=== PATIENT | female | born 1940 | race Caucasian/White ===

== ENCOUNTER 2016-09-05 08:57 | Emergency (ER) | payer MEDICARE, OTHER ==
[~2016-09-05] VITALS: Ht 157.5 cm; Wt 59.1 kg
[2016-09-05] VITALS (8 sets, daily range): BP systolic 89–134; BP diastolic 39–107; PULSE 63–83; RESP 14–20; O2SAT 95–98
[~2016-09-05 08:57] MED LIST: ASPI-973 PO; ATEN25TA PO; CALC-953 PO; CETI10CA PO; CITRUCEL PO; CYAN1TAB42 PO; DIAZ5TAB3 PO; FLUO20CA25 PO; FLUT16SP NS; LOSA100T29 PO; MECL-114 PO; MULT-1018 PO; OMEP20CA11 PO; TRAM50TA2 PO
--- NOTE | 2016-09-05 09:25 | ED.REPORT ---
HPI-General Illness Date of Service Sep 05, 2016 ED Provider: Zoë Rashid MD 76 y/o female on Aspirin and with a hx of HTN, hyperlipidemia, benign paroxysmal positional vertigo and anxiety presents to the ED via EMS complaining of lightheadedness, onset just prior to arrival. The pt was washing her face earlier today when she felt like she was going to fall if she did not sit down. She states "I might have passed out after I sat down". Associated sx include worsening chronic cough, fatigue, diaphoresis, nausea and difficulty maintaining balance. She denies any focal pain, fever, chills, hematochezia, melena, shortness of breath, depression, stress and change in appetite. The pt has never experienced similar sx before. Nursing Notes Stated Complaint: NEAR SYNCOPE Chief Complaint: General Complaint Nursing Notes Reviewed: Yes Allergies: Coded Allergies: Penicillins (Verified Allergy, Severe, itchy rash, 11/23/14) Sulfa (Sulfonamide Antibiotics) (Verified Allergy, Unknown, RASH, 11/23/14) hydrocodone (Verified Adverse Reaction, Severe, N/V, 11/23/14) Cat Dander (Verified Adverse Reaction, Intermediate, nasal plug up, ) oxycodone (Verified Adverse Reaction, Intermediate, n/v, 11/23/14) Scheduled ([Citrucel]) 1 TBS PO DAILY Aspirin (Aspirin) 81 Mg Tablet 81 MG PO DAILY Atenolol (Atenolol) 25 Mg Tablet 25 MG PO DAILY Calcium Citrate/Vitamin D3 (Calcium Citrate-Vit D3 Tablet) 1 Each Tablet 1 EACH PO DAILY Cetirizine HCl (Zyrtec) 10 Mg Capsule 10 MG PO DAILY Cyanocobalamin/Folic Acid (Vitamin E57-Ydiqy Acid Tablet) 1 Each Tablet 1 EACH PO DAILY Fluoxetine (Fluoxetine) 20 Mg Capsule 20 MG PO DAILY Fluticasone Propionate (Fluticasone Propionate Nasal) 16 Gm [place].susp 1 SPRAY NS BID Losartan Potassium (Losartan Potassium) 100 Mg Tablet 100 MG PO DAILY Meclizine (Bonine) 25 Mg Tab.chew 25 MG PO Q8 Meclizine (Bonine) 25 Mg Tab.chew 25 MG PO TID Multivitamin (Multi Vitamin Daily) 1 Each Tablet 1 EACH PO DAILY Omeprazole (Omeprazole) 20 Mg Capsule.dr 20 MG PO DAILY Scheduled PRN Diazepam (Diazepam) 5 Mg Tablet 5 MG PO TID PRN PRN For Spasm Tramadol (Tramadol) 50 Mg Tablet 100 MG PO Q6H PRN PRN For Pain Tramadol (Tramadol) 50 Mg Tablet 50 MG PO Q4H PRN PRN For Pain General Time Seen by MD: 08:59 Chief Complaint Other (lightheadedness) Hx Obtained From: Patient Arrived By: Ambulance Sudden in Onset?: Yes Onset Occurred: Just prior to arrival Symptom Duration: Since onset Severity: Current: No pain currently Severity: Maximum: No pain Recent Healthcare: No recent doctor visit Similar Sx Previous: No Past Medical History Past Medical History Shoulder pain Anxiety Torn - March, Benign paroxysmal positional vertigo Reports: GERD, Hyperlipidemia, Hypertension Past Surgical History Colonoscopy revealed few diverticula Smoking History Never Smoker Social History Patient goes to the gym twice on a weekly basis Other Social History: Good social support, , Local resident Ambulatory Status Independent Review of Systems Reports: difficulty keeping balance Denies: focal pain Denies: change in appetite Full Review of Systems Constitutional: Reports: Fatigue, Denies: Chills, Fever Respiratory: Reports: Non-productive cough (worsening), Denies: Shortness of breath GI: Reports: Nausea, Denies: Hematochezia, Melena Skin: Reports Diaphoresis Neurologic: Reports: Lightheaded Psychiatric: Denies: Depression, Stress Complete sys rev & neg: except as marked. Physical Exam Vital Signs Vital Signs Date Time Temp Pulse Resp B/P Pulse Ox O2 Delivery O2 Flow Rate FiO2 09/05/16 12:38 67 16 100/44 97 Room Air 09/05/16 12:22 67 16 100/44 97 Room Air 09/05/16 12:19 64 18 110/43 96 Room Air 09/05/16 11:38 63 20 134/107 95 Room Air 09/05/16 10:48 83 17 96/49 96 09/05/16 10:48 74 16 89/48 98 09/05/16 10:47 73 14 105/39 96 Room Air 09/05/16 10:40 77 16 113/44 09/05/16 09:19 36.9 76 14 123/49 96 Room Air Initial VS: Reviewed Head / Eyes: Atraumatic, Normocephalic, PERRL Abdomen / GI: Soft, Non-tender Extremities: Vascular intact, Neuro intact, No swelling, No tenderness Skin: Warm, Dry, No cyanosis General/Constitutional: Awake, Alert, No acute distress, Well appearing, Cooperative Neck: Atraumatic, Supple, Full range of motion, No carotid bruit Respiratory / Chest: Atraumatic, Breath sounds NL, Breath sounds = bilat, No respiratory distress, No rales, No rhonchi, No wheezing Cardiovascular: Heart rate NL, Regular rhythm, Heart sounds NL, No gallop, No murmurs, No rubs Neurologic: Oriented X3, Speech NL, No motor deficits, No sensory deficits, CN II - XII intact, Cerebellar NL (mild unsteadiness on tandem gait), Gait NL Face symmetric Strength intact No dysmetria Interpretation & Diagnostics Lab Results Interpretation Result Diagram: 09/05/16 0910 09/05/16 0910 Test 09/05/16 09:10 White Blood Count 10.3th/mm3 (3.8-10.1) Red Blood Count 4.13mil/mm3 (3.90-5.20) Hemoglobin 12.4g/dL (12.0-15.6) Hematocrit 36.0% (35.0-46.0) Mean Corpuscular Volume 87.2fL (81-100) Mean Corpuscular Hemoglobin 30.0pg (27.0-35.0) Mean Corpuscular Hemoglobin Concent 34.4% (32.0-37.0) Red Cell Distribution Width 12.6% (12.3-15.4) Platelet Count 258bil/L (150-400) Neutrophils (%) (Auto) 64.9% (40-74) Lymphocytes (%) (Auto) 18.0% (14-46) Monocytes (%) (Auto) 12.8% (4-12) Eosinophils (%) (Auto) 3.1% (0-5) Basophils (%) (Auto) 0.9% (0-3) Sodium Level 132mEq/L (134-144) Potassium Level 4.0mEq/L (3.5-5.2) Chloride Level 93mEq/L (97-108) Carbon Dioxide Level 22mmol/L (18-29) Blood Urea Nitrogen 17mg/dL (8-27) Creatinine 0.97mg/dL (0.57-1.00) Estimat Glomerular Filtration Rate 80mL/min (>59) Glucose Level 115mg/dL (60-99) Calcium Level 9.5mg/dL (8.5-10.1) Magnesium Level 1.6mg/dL (1.6-2.6) Total Bilirubin 0.9mg/dL (0.0-1.2) Aspartate Amino Transf (AST/SGOT) 46U/L (0-50) Alanine Aminotransferase (ALT/SGPT) 40U/L (0-32) Alkaline Phosphatase 149U/L (25-165) Troponin T 0.010ug/L (0.0-0.011) Total Protein 8.1g/dL (6.4-8.4) Albumin 3.7g/dL (3.4-5.0) ECG Interpretation ECG Interpretation: Normal sinus rhythm. Rate 71. Prolonged VA interval Low voltage, precordial leads Time: 09:12 Interpreted by: ED physician X-Ray Chest Interpretation Chest Xray Interpretation: IMPRESSION: Stable chest. No acute cardiopulmonary process is evident. Dictated by: Jaosn Charles M.D. on 09/05/2016 at 8:41 Approved by: Jason Charles M.D. on 09/05/2016 at 8:45 View: Portable, 1 view Interpretation / Wet Read by: Interpret - Radiologist Re-Eval/Medical Decision Med Decision/Clinical Course 76-year-old female with history of presyncope preceding to be this morning with no fall or head strike. She did have some orthostasis on physical exam with low blood pressure with standing. She had a prodrome as well, and I have a low suspicion for cardiac arrhythmia as the source of her symptoms. Discussed her case with primary care doctor, who recommends stopping her atenolol which given her blood pressure in the emergency department he thinks a good idea. She had normal neurologic exam exception of some unsteadiness with tandem gait only and no other cerebellar signs. I do not suspect a neurologic cause of her symptoms. She has an appointment with her primary care doctor within 1 week, with reviewed plan and return precautions with her and her and they expressed understanding. Source of Hx: Old records Time of Eval: 10:45 Re-Evaluation/Progress Note: The pt ambulated with steady gait. She is somewhat unsteady with tandem gait. Her orthostatic vital signs are positive but she does not report dizziness any more. Informed the pt Dr. Quesada will be consulted for the plan ahead. She understands and agrees with the plan. All questions answered. Time of Eval: 11:13 Re-Evaluation/Progress Note: Rechecked pt. Discussed lab results, imaging results, diagnosis and plan to discharge. Pt understands and agrees with the plan. F/U instructions and RTER warning given. All questions addressed. Consultation : Referral / Consult Name: Rudy Quesada MD Consulted With: Primary care physician Call Returned at: 10:57 Auto Headlight Mechanic: Will see in office, Agrees with eval, Agrees with plan Note: Dr. Quesada will see the pt next week. He recommends stopping atenolol and taking amlodipine if she has a headache. Counseled Regarding: Diagnosis, Lab results, Need for follow-up, When/why to return to ED Discharge & Departure Primary Impression: Lightheadedness Disposition: Home Discharge Condition All VS Reviewed: Yes Additional Instructions: Thank you for entrusting us with your care today. Your lab and imaging results were reassuring. Her vital signs did show that he may be dehydrated. Stop taking your atenolol. If after a few days without taking atenolol you are having any episodes of lightheadedness or dizziness, you should decrease your amlodipine dose by half. If you have questions about this you can call Dr. Quesada's office. Please keep your appointment with Dr. Quesada on 09/12/16 at 09:20 for further evaluation. Return to the emergency department in case of chest pain, shortness of breath, worsening dizziness or any new or concerning symptoms. Referrals: Rudy Quesada MD (PCP) Scribe Attestation Portions of this note were transcribed by Roxann Christopher. I,, personally performed the history, physical exam and medical decision-making;I reviewed and confirmed the accuracy of the information in the transcribed note. Signed by Alicia Lozano. 09/05/16 11:23 copies to: Rudy Quesada MD, Sarah C MD Sep 05, 2016 09:24 Roxann Christopher Sep 05, 2016 09:36
[2016-09-05 09:41] LABS: Mean Corpuscular Volume 87.2 fL (81-100)
[2016-09-05 09:42] LABS: BASOPHILS % (AUTO) 0.9 % (0-3); EOSINOPHILS % (AUTO) 3.1 % (0-5); MONOCYTES % (AUTO) 12.8 % (4-12); NEUTROPHILS % (AUTO) 64.9 % (40-74); Platelet Count 258 bil/L (150-400)
--- NOTE | 2016-09-05 09:47 | DRSVH ---
PROCEDURE: X-RAY CHEST ONE VIEW, PORTABLE ([id number]) INDICATIONS: near syncope TECHNIQUE: One view of the chest was acquired. COMPARISON: [facility], CR, XR CHEST 2VW, 06/28/2015, 9:20. FINDINGS: Surgical changes and devices: None. Lungs and pleura: No pleural effusions or pneumothorax. Lungs are clear. Mediastinum: Mediastinal contours appear normal. Heart size is normal. There is aortic atheroscler osis. Bones and chest wall: No suspicious bony lesions. Overlying soft tissues appear unremarkable. IMPRESSION: Stable chest. No acute cardiopulmonary process is evident. Dictated by: Jason Charles M.D. on 09/05/2016 at 8:41 Approved by: Jason Charles M.D. on 09/05/2016 at 8:45
[2016-09-05 09:48] LABS: TROPONIN T 0.01 ug/L (0.0-0.011)
[2016-09-05 10:00] LABS: Magnesium 1.6 mg/dL (1.6-2.6)
[2016-09-05] MEDS ORDERED: 0.9% Sodium Chloride 1,000 ML IV ONE (10:55)
== END 2016-09-05 12:41 | disposition home or self-care (01) ==
LOC: SED 08:57
DX: R42 Dizziness and giddiness (principal); R05 Cough; R53.83 Other fatigue; R61 Generalized hyperhidrosis; R11.0 Nausea; R26.89 Other abnormalities of gait and mobility; F41.9 Anxiety disorder, unspecified; I10 Essential (primary) hypertension; K21.9 Gastro-esophageal reflux disease without esophagitis; E78.5 Hyperlipidemia, unspecified; Z79.82 Long term (current) use of aspirin; Z88.0 Allergy status to penicillin; Z88.2 Allergy status to sulfonamides; Z88.5 Allergy status to narcotic agent; Z91.09 Other allergy status, other than to drugs and biological substances
CPT/HCPCS: 36415; 71010; 80053; 83735; 84484; 85025; 93005; 96360; 99285; J7030

== ENCOUNTER 2016-09-13 13:27 | Inpatient (IN) | payer MEDICARE ==
[~2016-09-13] VITALS: Ht 157.5 cm; Wt 59.9 kg
[2016-09-13 13:32] VITALS: BP 116/78; PULSE 89; RESP 16; O2SAT 98
--- NOTE | 2016-09-13 13:40 | ED.REPORT ---
HPI-General Illness Date of Service Sep 13, 2016 ED Provider: Rizwana Maurilio Patient is a 76 year old female with a hx of hyperlipidemia who presents to the ED after being referred by Dr. Quesada for abnormal lab values. Associated symptoms include weakness, orange urine, and fatigue. She reports she has not been eating and drinking normally. She denies diarrhea, constipation, rash, fevers, chills, numbness, focal weakness, abdominal pain, dysuria, or any other symptoms. Lab values 09/12/16 are as follows: Bilirubin 1.5, Cl 90, K 3.6, Na 128, Hematocrit 30.3, Hemoglobin 10.4, WBC 13.9. She was seen in the ED a week ago s/p a syncopal episode. Patient was taken off of her blood pressure medication yesterday. Nursing Notes Stated Complaint: BLOOD ISSUE/ SENT BY Chief Complaint: General Complaint Nursing Notes Reviewed: Yes Allergies: Coded Allergies: Penicillins (Verified Allergy, Severe, itchy rash, 09/13/16) Sulfa (Sulfonamide Antibiotics) (Verified Allergy, Unknown, RASH, 09/13/16) hydrocodone (Verified Adverse Reaction, Severe, N/V, 09/13/16) Cat Dander (Verified Adverse Reaction, Intermediate, nasal plug up, ) oxycodone (Verified Adverse Reaction, Intermediate, n/v, 09/13/16) Scheduled ([Citrucel]) 1 TBS PO DAILY Aspirin (Aspirin) 81 Mg Tablet 81 MG PO DAILY Atenolol (Atenolol) 25 Mg Tablet 25 MG PO DAILY Calcium Citrate/Vitamin D3 (Calcium Citrate-Vit D3 Tablet) 1 Each Tablet 1 EACH PO DAILY Cetirizine HCl (Zyrtec) 10 Mg Capsule 10 MG PO DAILY Cyanocobalamin/Folic Acid (Vitamin U62-[place] Acid Tablet) 1 Each Tablet 1 EACH PO DAILY Fluoxetine (Fluoxetine) 20 Mg Capsule 20 MG PO DAILY Fluticasone Propionate (Fluticasone Propionate Nasal) 16 Gm [place].susp 1 SPRAY NS BID Losartan Potassium (Losartan Potassium) 100 Mg Tablet 100 MG PO DAILY Meclizine (Bonine) 25 Mg Tab.chew 25 MG PO Q8 Meclizine (Bonine) 25 Mg Tab.chew 25 MG PO TID Multivitamin (Multi Vitamin Daily) 1 Each Tablet 1 EACH PO DAILY Omeprazole (Omeprazole) 20 Mg Capsule.dr 20 MG PO DAILY Scheduled PRN Diazepam (Diazepam) 5 Mg Tablet 5 MG PO TID PRN PRN For Spasm Tramadol (Tramadol) 50 Mg Tablet 100 MG PO Q6H PRN PRN For Pain Tramadol (Tramadol) 50 Mg Tablet 50 MG PO Q4H PRN PRN For Pain General Time Seen by MD: 13:39 Chief Complaint Weakness Hx Obtained From: Patient, Spouse Arrived By: Walk-in Recent Healthcare: Recent doctor visit Past Medical History Past Medical History Shoulder pain Anxiety Torn meniscus- March, Benign paroxysmal positional vertigo Reports: GERD, Hyperlipidemia Reports: Depression, Diverticulitis Past Surgical History Colonoscopy revealed few diverticula sigmoid colectomy oophorectomy hemorrhoidectomy Reports: Appendectomy Smoking History Never Smoker Social History Patient goes to the gym twice weekly Alcohol Use: Denies alcohol use Other Social History: Good social support, , Local resident Ambulatory Status Independent Review of Systems +abnormal lab values, orange urine, decreased appetite Full Review of Systems Constitutional: Reports: Fatigue, Weakness - generalized, Denies: Chills, Fever GI: Denies: Abdominal pain, Constipation, Diarrhea Female: Denies: Dysuria Skin: Denies Rash Neurologic: Denies: Focal weakness, Numbness Complete sys rev & neg: except as marked. Physical Exam Vital Signs Vital Signs Date Time Temp Pulse Resp B/P Pulse Ox O2 Delivery O2 Flow Rate FiO2 09/13/16 13:32 36.7 89 16 116/78 98 Room Air Initial VS: Reviewed, Vital signs normal Head / Eyes: Atraumatic, Normocephalic Neck: Full range of motion Respiratory: Breath sounds normal, Clear to auscultation, No respiratory distress Cardiovascular: Regular rate & rhythm, Heart sounds normal, Intact distal pulses Abdomen / GI: Soft, Non-tender Skin: Warm, Dry Neurologic: Alert, Oriented, Nonfocal Psychiatric: Mood/affect normal, Behavior normal, Normal thought content General/Constitutional: Awake, Alert Distress / Hydration: Positive: Dehydration mild Appearance / Presentation: Positive: Pale Thin Mouth: Positive: Mucous membranes dry Interpretation & Diagnostics Lab Results Interpretation Result Diagram: 09/13/16 1357 09/13/16 1357 Test 09/13/16 13:57 White Blood Count 14.7th/mm3 (3.8-10.1) Red Blood Count 3.74mil/mm3 (3.90-5.20) Hemoglobin 11.0g/dL (12.0-15.6) Hematocrit 31.6% (35.0-46.0) Mean Corpuscular Volume 84.5fL (81-100) Mean Corpuscular Hemoglobin 29.4pg (27.0-35.0) Mean Corpuscular Hemoglobin Concent 34.8% (32.0-37.0) Red Cell Distribution Width 12.8% (12.3-15.4) Platelet Count 310bil/L (150-400) Neutrophils (%) (Auto) 87.7% (40-74) Lymphocytes (%) (Auto) 6.3% (14-46) Monocytes (%) (Auto) 4.2% (4-12) Eosinophils (%) (Auto) 1.2% (0-5) Basophils (%) (Auto) 0.1% (0-3) Prothrombin Time 11.1sec (8.1-12.5) Prothromb Time International Ratio 1.04ratio Sodium Level 125mEq/L (134-144) Potassium Level 3.7mEq/L (3.5-5.2) Chloride Level 88mEq/L (97-108) Carbon Dioxide Level 22mmol/L (18-29) Blood Urea Nitrogen 14mg/dL (8-27) Creatinine 0.86mg/dL (0.57-1.00) Estimat Glomerular Filtration Rate 91mL/min (>59) Glucose Level 111mg/dL (60-99) Lactic Acid Level 1.5mmol/L (0.4-2.0) Calcium Level 9.2mg/dL (8.5-10.1) Magnesium Level 1.9mg/dL (1.6-2.6) Total Bilirubin 1.4mg/dL (0.0-1.2) Aspartate Amino Transf (AST/SGOT) 60U/L (0-50) Alanine Aminotransferase (ALT/SGPT) 57U/L (0-32) Alkaline Phosphatase 183U/L (25-165) Total Protein 8.3g/dL (6.4-8.4) Albumin 3.3g/dL (3.4-5.0) Lipase 584U/L (13-60) Re-Eval/Medical Decision Med Decision/Clinical Course Findings concerning for pancreatitis and probable gallstone pancreatitis. IV ertapenem is ordered. 1 L of normal saline is given and then subsequent to labs returning normal saline at 100 miles an hour is initiated. The patient is comfortable, she is not vomiting. Will await imaging and plan for admission versus transfer. Care transferred to Dr. Pérez Time of Eval: 14:15 Re-Evaluation/Progress Note: Discussed plan for admission pending CT results. Patient understands and agrees with plan. All questions addressed at this time. Consultation : Referral / Consult Name: Sorin Herrera MD Call Returned at: 15:10 Note: Gastroenterology, states he does not perform ERCP. If the patient will need urgent or emergent ERCP the patient should be transferred to a facility where this can be accommodated. Counseled Regarding: Diagnosis, Lab results, Need for admission Discharge & Departure Primary Impression: Acute pancreatitis Pancreatitis type: unspecified pancreatitis type Acute pancreatitis complication: unspecified Qualified Code: K85.90 - Acute pancreatitis without necrosis or infection, unspecified Disposition: ADMITTED TO HOSPITAL Discharge Condition All VS Reviewed: Yes Condition: Stable Referrals: Rudy Quesada MD (PCP) Care Transferred to: [facility] Transferred at: 15:15 Scribe Attestation Portions of this note were transcribed by Beth Hammond. I, Dr. Wagoner personally performed the history, physical exam and medical decision-making; I reviewed and confirmed the accuracy of the information in the transcribed note. copies to: Rudy Quesada MD, Timothy Ninoska RECIO Sep 13, 2016 13:40 BETH HAMMOND Sep 13, 2016 14:06
[2016-09-13] MEDS ORDERED: 0.9% Sodium Chloride 1,000 ML IV ONE ×2 (13:53→17:45)
[2016-09-13] MEDS ORDERED: Ondansetron 2 mg/mL 2 mL Inj IVPUSH PRN ×3 (13:55→17:45)
[2016-09-13 14:06] LABS: BASOPHILS % (AUTO) 0.1 % (0-3); EOSINOPHILS % (AUTO) 1.2 % (0-5); MONOCYTES % (AUTO) 4.2 % (4-12); Mean Corpuscular Hemoglobin 29.4 pg (27.0-35.0); Mean Corpuscular Volume 84.5 fL (81-100); NEUTROPHILS % (AUTO) 87.7 % (40-74); Platelet Count 310 bil/L (150-400)
[2016-09-13 14:23] LABS: INR 1.04 ratio
[2016-09-13 14:29] LABS: Magnesium 1.9 mg/dL (1.6-2.6)
[2016-09-13] MEDS ORDERED: 0.9% Sodium Chloride 1,000 ML IV SCH (14:40)
[2016-09-13] MEDS ORDERED: Ertapenem Inj 1,000 MG in 0.9% Sodium Chloride 50 ML IV ONE (15:00)
[2016-09-13] MEDS ORDERED: RANI150C4 PO (15:41)
[2016-09-13] MEDS ORDERED: ATRV10T PO (15:41)
--- NOTE | 2016-09-13 15:57 | DRSVH ---
PROCEDURE: CT ABDOMEN AND PELVIS WITH CONTRAST ([id number]) INDICATIONS: abnormal LFT, weakness, loss of apetite TECHNIQUE: After the administration of oral and intravenous contrast, 5 mm thick sections acquired from the diap hragms to the symphysis. 5 mm thick coronal and sagittal reformats were performed. For radiation do se reduction, the following was used: automated exposure control, adjustment of mA and/or kV accordi ng to patient size. COMPARISON: [facility], CT, ABD/PELVIS W/CON (PN), 10/28/2007, 13:10. FINDINGS: Image quality: Excellent. ABDOMEN: Lung bases: Lung bases are clear. Heart size is normal. There are small bilateral posterior diaphr agmatic hernias containing a short segment of small bowel on the left. No evidence of bowel obstruct ion or strangulation. There is also a small sliding hiatal hernia. Solid organs: Liver and spleen are normal in size and enhancement. Gallbladder appears within ventura l limits without calcified gallstones.. Biliary system is non-dilated. Pancreas enhances normally. No adrenal nodules. There is a solitary right kidney without hydronephrosis. The left kidney is ab sent. Peritoneum and bowel: Stomach, small bowel, and colon loops are normal in caliber and wall thickness . No free fluid or air. Nodes and vessels: No retroperitoneal or mesenteric adenopathy. Aorta and inferior vena cava are no rmal in caliber. Miscellaneous: No ventral hernias. PELVIS: Genitourinary: Bladder wall thickness is normal. The uterus demonstrates multiple small calcificati ons suggestive of calcified fibroids versus vascular calcifications. Miscellaneous: No inguinal hernias or adenopathy. Bones: No suspicious bony lesions. There is mild grade 1 anterolisthesis at L4-5 and L5-S1 without pars defects. There is prominent facet arthropathy within the lower lumbar spine. No vertebral body compression fractures. IMPRESSION: 1. No definite acute intra-abdominal abnormality. 2. Small sliding hiatal hernia and small bilateral posterior diaphragmatic hernias with a short srikanth iated segment of small bowel on the left. No associated bowel obstruction. 3. 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 Dictated by: Mike Gale M.D. on 09/13/2016 at 15:50 Approved by: Mike Gale M.D. on 09/13/2016 at 15:56
[2016-09-13 17:22] VITALS: BP 118/72; PULSE 83; RESP 16; O2SAT 99
[2016-09-13] MEDS ORDERED: Alum-Mag Hydrox-Simeth 30 mL Suspension PO PRN ×2 (17:30→17:45)
--- NOTE | 2016-09-13 17:42 | PCM.HPMED ---
Subjective Date of Service Sep 13, 2016 Primary Provider: Admitting Physician: Primary Care Physician: Rudy Quesada MD Attending Physician: Chief Complaint: Abnormal lab values History of Present Illness: 68-year-old female with multiple recent episodes of near syncope recently admitted for the same presents emergency department after Dr Quesada (pcp work) received abnormal lab values. The patient stats that over the last couple of weeks she has become more anorexic, with intermittent nausea that is more associated with her mcc for episodes, but denies fever, chills, chest pain, racing heartbeat, abdominal pain, or emesis/diarrhea. Possibly associated with cold sweats, intermittent tremor, and intermittent shortness of breath with exertion. Patient is chronically constipated but was also noticed last couple of days her stools become more soft more easily passed. Emergency department the patient had moderate leukocytosis with elevated transaminases and lipase greater than 500. CT of the abdomen did not reveal overt pancreatitis or masses. Patient was initially not febrile by the time she reached the floor her temperature is 38.1 and she was tachycardic. Patient denies any fever or chills. Review of Systems: Complete review of systems performed; pertinent positives and negatives per history of present illness, all other systems reviewed and are negative Allergies Coded Allergies: Penicillins (Verified Allergy, Severe, itchy rash, 09/13/16) Sulfa (Sulfonamide Antibiotics) (Verified Allergy, Unknown, RASH, 09/13/16) hydrocodone (Verified Adverse Reaction, Severe, N/V, 09/13/16) Cat Dander (Verified Adverse Reaction, Intermediate, nasal plug up, ) oxycodone (Verified Adverse Reaction, Intermediate, n/v, 09/13/16) Home Medications Aspirin (Aspirin) 81 Mg Tablet 81 MG PO DAILY Atenolol (Atenolol) 25 Mg Tablet 25 MG PO DAILY Calcium Citrate/Vitamin D3 (Calcium Citrate-Vit D3 Tablet) 1 Each Tablet 1 EACH PO DAILY Cetirizine HCl (Zyrtec) 10 Mg Capsule 10 MG PO DAILY Cyanocobalamin/Folic Acid (Vitamin Q01-Rosvv Acid Tablet) 1 Each Tablet 1 EACH PO DAILY Fluoxetine (Fluoxetine) 20 Mg Capsule 20 MG PO DAILY Fluticasone Propionate (Fluticasone Propionate Nasal) 16 Gm [place].susp 1 SPRAY NS BID Losartan Potassium (Losartan Potassium) 100 Mg Tablet 100 MG PO DAILY Meclizine (Bonine) 25 Mg Tab.chew 25 MG PO Q8 Meclizine (Bonine) 25 Mg Tab.chew 25 MG PO TID Multivitamin (Multi Vitamin Daily) 1 Each Tablet 1 EACH PO DAILY Omeprazole (Omeprazole) 20 Mg Capsule.dr 20 MG PO DAILY Diazepam (Diazepam) 5 Mg Tablet 5 MG PO TID PRN PRN For Spasm Tramadol (Tramadol) 50 Mg Tablet 100 MG PO Q6H PRN PRN For Pain Tramadol (Tramadol) 50 Mg Tablet 50 MG PO Q4H PRN PRN For Pain PMH Shoulder pain Anxiety Torn meniscus- March, Benign paroxysmal positional vertigo Reports: GERD, Hyperlipidemia Reports: Depression, Diverticulitis Surgical History Colonoscopy revealed few diverticula sigmoid colectomy oophorectomy hemorrhoidectomy Reports: Appendectomy Family History Father of testicular cancer at 87 Mother at 97 with history of breast cancer Social History Hx Alcohol Use: No Hx Substance Use: No Hx Tobacco Use: No Smoking Status: Never Smoker Exam Vital Signs Vital Sign - Last Date Time Temp Pulse Resp B/P Pulse Ox O2 Delivery O2 Flow Rate FiO2 09/13/16 17:22 36.6 83 16 118/72 99 Room Air Exam General: Pleasant appearing female/male, no acute distress HEENT: PERRLA, EOMI, nonicteric, membranes moist Lymph: No lymphadenopathy Cardio: Regular rate and rhythm no murmurs rubs or gallops Respiratory: CTA bilaterally, no wheezes, no crackles Abdomen: Soft, positive bowel sounds, tender in epigastrum and RUQ, nondistended Extremities: No edema, 4 x 4 strength, sensation intact Psych: Appropriate mood and affect Neuro: CN II through XII grossly intact, sensation intact throughout Skin: No rash Lab and Diagnostics Result Diagram: 09/13/16 1357 09/13/16 1357 X-Rays, CTs and MRIs Abdominal CT 1. No definite acute intra-abdominal abnormality. 2. Small sliding hiatal hernia and small bilateral posterior diaphragmatic hernias with a short herniated segment of small bowel on the left. No associated bowel obstruction. 3. 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 Dictated by: Mike Gale M.D. on 09/13/2016 at 15:50 Assessment & Plan 76-year-old female presents due to abnormal blood work with reporting near syncopal episodes, anorexia, intermittent nausea, and soft stools when she is chronically constipated, with elevated LFTs with concern for biliary source. Sepsis with concern for biliary source; present on admission; ongoing -Initially patient did not have fever but did have moderate leukocytosis; once admitted to the floor she developed a fever and tachycardia -Concern for cholangitis due to elevated alkaline phosphatase and LFTs -2 L normal saline, and 200 mL per hour maintenance -Ertapenem given in the ED -Repeat CBC -Procalcitonin -Blood cultures were not taken prior to initiation of antibiotics in the ED Pancreatitis likely second to gallstone; present on admission; ongoing -Lipase 584, and elevated LFTs consistent with bile duct obstruction -CT did not demonstrate findings of overt pancreatitis -BUN and hematocrit to make criteria for severe pancreatitis -2 L normal saline; 200 mL/hour thereafter -MRCP ordered -Patient will be allowed to take clears as tolerated -Repeat labs in a.m. Tachycardia; present on admission; ongoing -HR around 150-160 on exam likely second to developing sepsis -Metoprolol 12.5 mg once -fluids as above Anemia; present on admission; ongoing -Hemoglobin is 11.0 -We will check iron and B12/folate studies -If continues to drop we will check haptoglobin and smear Hyponatremia likely secondary to dehydration; present on admission; ongoing -Patient presents with pancreatitis and appears dehydrated -We will hydrate as above -Also check urine sodium Disposition: Patient is being admitted to inpatient status with expected length of stay greater than two midnights due to to severity of presentation, duration of treatment, and risks of adverse events disposition DNR/DNI Pain Evaluation: Adequate Pain Control VTE Prophylaxis: Sub-Q Heparin (Unfractionated) Resuscitation Status: CPR: Attempt Resuscitation Attending Statement Seen and examined the patient at 8:30 PM, she is in no acute distress. Recommend adding an ruq ultrasound, GI consult. Added sodium labs to follow up on low-sodium. Urine osmolality, serum osmolality, the TSH, cortisol to figure out the etiology reduced IV fluids to 150 mL per. Agree with the rest of the management as detailed above Lester Theodore DO Sep 13, 2016 17:42 Delia Brower DO Sep 13, 2016 23:55
[2016-09-13] MEDS ORDERED: Polyethylene Glycol (PEG) 17 Gm Powder PO PRN (17:45)
[2016-09-13 18:12] VITALS: BP 126/73; PULSE 120; RESP 18; O2SAT 98
[2016-09-13 19:06] LABS: APPEARANCE,URINE CLEAR (CLEAR,HAZY); COLOR,URINE YELLOW (YELLOW); PH,URINE 5.5 (5.0-8.0)
[2016-09-13 19:07] LABS: OCCULT BLOOD,URINE SMALL (NEGATIVE); UROBILINOGEN,URINE NORMAL (NORMAL)
[2016-09-13 19:54] VITALS: BP 125/73; PULSE 126; RESP 20; O2SAT 97
[2016-09-13] MEDS: 0.9% Sodium Chloride 1,000 ML IV SCH (21:42)
--- NOTE | 2016-09-13 22:01 | DRSVH ---
PROCEDURE: MR ABDOMEN MRCP INDICATIONS: Pancreatitis. TECHNIQUE: Coronal HASTE through the abdomen, axial 2-D FLASH in- and [id number], and breath-hold T2 FSE with fat saturation through the biliary system and pancreas. Oblique coronal and axial thin-slice HASTE, radial thick-slab HASTE centered on the extrahepatic bile ducts. Intravenous secretin: Not requested. COMPARISON: [facility], CT, CT ABD PELVIS W CON, 09/13/2016, 15:00. FINDINGS: Image quality: Evaluation limited by mild motion artifact. Pancreas and biliary system: Gallbladder demonstrates no gallstones, gallbladder wall thickening, or pericholecystic fluid. Intra- and extra-hepatic biliary ducts are normal in caliber without filling defects to suggest choledocholithiasis. Pancreas is normal in morphology, without associated peripan creatic fluid or edema. Pancreatic duct is normal in caliber, without developmental anomalies. Other solid organs: Liver and spleen are normal in size. No adrenal nodules. There is a single rig ht kidney without hydronephrosis. Nodes and vessels: No retroperitoneal or mesenteric adenopathy by size criteria. Aorta and inferior vena cava are normal in size. Bowel and peritoneum: Visualized bowel loops are normal in caliber. No free fluid. Lung bases: No basal pleural effusions. Heart size is normal. Bones and soft tissues: No ventral hernias. Bone marrow is of normal overall signal. IMPRESSION: 1. No MRI evidence of pancreatitis. 2. No evidence of cholelithiasis or choledocholithiasis. 3. No biliary or pancreatic ductal dilatation. Dictated by: Mike Gale M.D. on 09/13/2016 at 22:00 Approved by: Mike Gale M.D. on 09/13/2016 at 22:00
[2016-09-14] MEDS: Heparin 5,000 Unit/mL Inj SUBQ SCH ×3 (00:03→16:42)
[2016-09-14 00:10] VITALS: BP 105/57; PULSE 76; RESP 20; O2SAT 93
[2016-09-14] MEDS: 0.9% Sodium Chloride 1,000 ML IV SCH ×4 (04:21→20:05)
[2016-09-14 04:40] LABS: BASOPHILS % (AUTO) 0.2 % (0-3); EOSINOPHILS % (AUTO) 1.3 % (0-5); MONOCYTES % (AUTO) 5.9 % (4-12); Mean Corpuscular Hemoglobin 28.9 pg (27.0-35.0); Mean Corpuscular Volume 85.5 fL (81-100); NEUTROPHILS % (AUTO) 77.5 % (40-74); Platelet Count 299 bil/L (150-400)
[2016-09-14 04:55] LABS: INR 1.09 ratio
[2016-09-14 05:36] LABS: Bilirubin, Direct 0.3 mg/dL (0.0-0.3); Magnesium 1.7 mg/dL (1.6-2.6); Phosphorus 2.1 mg/dL (2.5-4.9)
[2016-09-14 06:20] VITALS: BP 112/57; PULSE 79; RESP 22; O2SAT 96
[2016-09-14] MEDS ORDERED: Ertapenem Inj 1,000 MG in 0.9% Sodium Chloride 50 ML IV SCH (08:30)
--- NOTE | 2016-09-14 10:38 | CONS ---
[address] [address] CONSULTATION REPORT PATIENT: DAVID MIXON : 1940 MR#: [id number] ADMIT: 09/13/2016 JOB ID: [id number] GASTROENTEROLOGY CONSULTATION: DATE OF SERVICE: 09/14/2016 REASON FOR CONSULTATION: Elevated lipase, transaminitis. HISTORY OF PRESENT ILLNESS: This is a pleasant, 76-year-old, female with a history of colon resection due to diverticulitis in which 14 inches of her colon removed in the past, anxiety, torn meniscus, shoulder pain, GERD, hyperlipidemia, depression, benign paroxysmal positional vertigo, hemorrhoidectomy, appendectomy, who presents for consultation for elevated transaminases and lipase. The patient was admitted yesterday on September 13, 2016 for fatigue, anorexia and nausea. The patient states that she has lost 27 pounds since February. The patient was found to have a total bilirubin 1.4, AST 60, ALT 57, alkaline phosphatase 183, albumin 3.3, and a lipase of 584. A CT of the abdomen and pelvis with contrast was performed September 13, 2016 which showed no evidence of pancreatitis or abnormalities of the pancreas. This shows sliding small hiatal hernia but no bowel obstruction. The patient states that she denied any epigastric pain upon admission, but today she states she has abdominal pain or whenever you press on her belly. The patient never had an EGD but had a colonoscopy 10 years ago with unknown results. The patient denies family history of colon cancer, inflammatory bowel disease, or celiac disease. The patient denies rectal bleeding, vomiting, hematemesis, change in bowel habits. The patient states that she has also noticed that her urine has become more darker during the past week and with belinda colored stools. PAST MEDICAL HISTORY: As stated above. PAST SURGERIES: As stated above. MEDICATIONS: At home, aspirin, atenolol, calcium, Zyrtec, vitamin B12, fluoxetine, fluticasone, losartan, meclizine, multivitamin, omeprazole, diazepam, tramadol. ALLERGIES: 1. PENICILLIN. 2. SULFA. 3. HYDROCODONE. 4. CAT DANDER. 5. OXYCODONE. SOCIAL HISTORY: No smoking, alcohol, drugs. FAMILY HISTORY: Negative for colon cancer, inflammatory bowel disease, or celiac disease. REVIEW OF SYSTEMS: The patient denies headache, blurred vision. Positive for nausea. No chest pain or short of breath. Positive for abdominal pain. No skin rashes or joint pain. PHYSICAL EXAMINATION: Vital signs upon presentation: Temperature is 37.4, pulse is 79, respiratory 22, blood pressure 112/57, satting 96% on room air. General: In no acute distress. Head: No scars. Eyes intact. Throat supple. Lungs: Clear to auscultation bilaterally. Cardiovascular: Regular rhythm and rate. Abdomen: Soft, nondistended. Positive epigastric pain on palpation. Normoactive bowel sounds. Extremities: No cyanosis, clubbing or edema. LABORATORY DATA: Currently show sodium 138, potassium 4.4, chloride 98, bicarb 21, BUN 9, creatinine 0.79, glucose 98, lactic acid 0.7, calcium 8.3, phosphorus 2.1 magnesium 1.7. Total bili 1.1, AST 51, ALT 44, alk phos 142, albumin 2.7, triglyceride level 65, amylase 450, lipase 842. DIAGNOSTIC DATA: MRCP also was performed September 13, 2016 which showed no evidence of choledocholithiasis, cholelithiasis and normal pancreas and normal pancreatic duct. ASSESSMENT AND PLAN: This is a pleasant, 76-year-old, female with a history of colon resection due to diverticulitis in which 14 inches were removed, appendectomy, hemorrhoidectomy, arthrectomy, GERD, hyperlipidemia, depression, torn meniscus, benign paroxysmal positional vertigo, anxiety, shoulder pain, who presents for consultation for nausea, weight loss and now abdominal pain with a lipase on admission of 584 and now 842. By definition, the patient has acute pancreatitis given the fact she has epigastric pain and lipase greater than three times upper limit normal. The patient will need an outpatient endoscopic ultrasound to rule out pancreatic mass even though the MRCP is negative given her age of greater than 48 with acute pancreatitis. The patient may have also passed a gallstone during this point in time which is part of the differential. RECOMMENDATIONS: 1. NPO. IV fluids. 2. Pain control per hospital team. 3. Outpatient endoscopic ultrasound to rule out pancreatic mass. Will continue to follow. [facility]
[2016-09-14 12:45] VITALS: BP 120/65; PULSE 79; RESP 18; O2SAT 96
[2016-09-14 20:45] VITALS: BP 138/74; PULSE 101; RESP 18; O2SAT 93
[2016-09-14 22:12] LABS: Unsaturated Iron Binding 128.9 ug/dL
[2016-09-14 23:08] VITALS: BP 148/68; PULSE 101; RESP 22; O2SAT 95
[2016-09-14] MEDS ORDERED: Glucose 40% Oral Gel 15 Gm Tube PO PRN (23:15)
[2016-09-14] MEDS: Dextrose 5% 0.45% NaCl 1,000 ML IV SCH (23:47)
[2016-09-15] VITALS (8 sets, daily range): BP systolic 114–167; BP diastolic 64–83; PULSE 89–140; RESP 19–22; O2SAT 94–97
[2016-09-15] MEDS: Heparin 5,000 Unit/mL Inj SUBQ SCH ×3 (00:56→17:03)
--- NOTE | 2016-09-15 01:02 | PCM.PNMED ---
Subjective Date of Service Sep 14, 2016 Subjective Patient is seen and examined , lipase is worse as well as mild increase in abdominal pain noted. Patient's and family's questions answered regarding the treatment plan Exam Vital Signs Vital Sign - Last Date Time Temp Pulse Resp B/P Pulse Ox O2 Delivery O2 Flow Rate FiO2 09/14/16 06:20 37.4 79 22 112/57 96 Room Air Intake and Output 09/13/16 09/13/16 09/14/16 Cumulative From/Thru 15:00 23:00 07:00 09/13/16 13:32 - 09/14/16 06:11 Intake Total 1000 ml 1000 ml 1153 ml 3153 ml Balance 1000 ml 1000 ml 1153 ml 3153 ml IV Total 1000 ml 1000 ml 1153 ml 3153 ml Exam General: Pleasant appearing female/male, no acute distress HEENT: PERRLA, EOMI, nonicteric, membranes moist Lymph: No lymphadenopathy Cardio: Regular rate and rhythm no murmurs rubs or gallops Respiratory: CTA bilaterally, no wheezes, no crackles Abdomen: Soft, positive bowel sounds, tender in epigastrum and RUQ, nondistended Extremities: No edema, 4 x 4 strength, sensation intact Psych: Appropriate mood and affect Neuro: CN II through XII grossly intact, sensation intact throughout Skin: No rash IVs and Medications Medications Reviewed: Medications were reviewed in detail Lab and Diagnostics Result Diagram: 09/14/1642909/14/16 043 X-Rays, CTs and MRIs Abdominal CT 1. No definite acute intra-abdominal abnormality. 2. Small sliding hiatal hernia and small bilateral posterior diaphragmatic hernias with a short herniated segment of small bowel on the left. No associated bowel obstruction. 3. 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 Dictated by: Mike Gale M.D. on 09/13/2016 at 15:50 Assessment & Plan 76-year-old female presents due to abnormal blood work with reporting near syncopal episodes, anorexia, intermittent nausea, and soft stools when she is chronically constipated, with elevated LFTs with concern for biliary source. Sepsis secondary to biliarysource ; present on admission; ruled out -Initially patient did not have fever but did have moderate leukocytosis; once admitted to the floor she developed a fever and tachycardia -Concern for cholangitis due to elevated alkaline phosphatase and LFTs, bili is WNL...Ruled out due to normal MRCP, lack of jaundice -2 L normal saline, and 200 mL per hour maintenance--> 150 cc/hr -Ertapenem given in the ED, one dose on the floor -Blood cultures were not taken prior to initiation of antibiotics in the ED: Negative to date -The patient is worse this a.m. --Improved leukocytosis 14.7-11.8 --Right upper quadrant scan is not performed because of weekend --Celiac panel is ordered --GI is consulted: Recommend autoimmune panel and IgG four, Conservative management followed by outpatient endoscopic ultrasound to rule out malignancy Pancreatitis likely second to gallstone; present on admission; worsened -Lipase 584--842, and elevated LFTs consistent with bile duct obstruction -CT did not demonstrate findings of overt pancreatitis -BUN and hematocrit to make criteria for severe pancreatitis -2 L normal saline; IV fluids decreased to 1 50 mL per hour -MRCP ordered showed no concern for CBD dilation, or Cholelithiasis or choledocholithiasis -Patient will be allowed to take clears as tolerated -Repeat labs in a.m. Tachycardia; present on admission; resolved -HR around 150-160 on exam likely second to developing sepsis -Metoprolol 12.5 mg once -fluids as above Anemia; present on admission; ongoing -Hemoglobin is 11.0 -We will check iron and B12/folate studies -If continues to drop we will check haptoglobin and smear Hyponatremia likely secondary to dehydration; present on admission; improving -Patient presents with pancreatitis and appears dehydrated -We will hydrate as above -Also check urine sodium, urine and serum osmole already, TSH is normal normal cortisol --Urine tests and serum osm show hypovolemia Disposition: Patient is being admitted to inpatient status with expected length of stay greater than two midnights due to to severity of presentation, duration of treatment, and risks of adverse events disposition DNR/DNI, is alternate decision-maker Pain Evaluation: Adequate Pain Control VTE Prophylaxis: Sub-Q Heparin (Unfractionated) VTE Mechanical Devices: Intermittant Pneumatic CD Resuscitation Status: CPR: Attempt Resuscitation Time spent 30 minutes Delia Brower DO Sep 14, 2016 08:15
[2016-09-15] MEDS: 0.9% Sodium Chloride 1,000 ML IV SCH ×2 (01:20→08:15)
--- NOTE | 2016-09-15 07:25 | PCM.PNSURG ---
Subjective Date of Service: Sep 15, 2016 Date of Service: Sep 15, 2016 Visit Information: Subjective: no acute events overnight. pt reports abdominal pain improved to 3/10. Pt wishes to try po intake Postop General: No Complaints Objective Vital Sign- Last 8 Hours Date Time Temp Pulse Resp B/P Pulse Ox O2 Delivery O2 Flow Rate FiO2 09/15/16 05:14 37.4 95 22 114/64 95 Room Air Intake and Output- Last 8 Hour 09/15/16 Cumulative From/Thru 07:00 09/13/16 13:32 - 09/15/16 06:12 Intake Total 1545 ml 6553 ml Output Total 1500 ml Balance 1545 ml 5053 ml Intake Oral 400 ml IV Total 1545 ml 6153 ml Output Urine Total 1500 ml # Voids 8 # Bowel Movements 0 General: Oriented X3 Neck: Supple Lungs: Clear to Auscultation Heart: Exam Unremarkable Abdomen: Benign, Soft, Appropriately tender, Non-distended, Normoactive bowel tones Extremities: Distal Pulses Palpable Result Diagram: 09/14/16 0430 09/14/16 0430 Assessment & Plan Impression This is a pleasant, 76-year-old, female with a history of colon resection due to diverticulitis in which 14 inches were removed, appendectomy, hemorrhoidectomy, arthrectomy, GERD, hyperlipidemia, depression, torn meniscus, benign paroxysmal positional vertigo, anxiety, shoulder pain, who presents for consultation for nausea, weight loss and now abdominal pain with a lipase on admission of 584 and now 842. By definition, the patient has acute pancreatitis given the fact she has epigastric pain and lipase greater than three times upper limit normal. The patient will need an outpatient endoscopic ultrasound to rule out pancreatic mass even though the MRCP is negative given her age of greater than 48 with acute pancreatitis. The patient may have also passed a gallstone during this point in time which is part of the differential. ct abdomen pelvis contrast 09/13/2016- IMPRESSION: 1. No definite acute intra-abdominal abnormality. 2. Small sliding hiatal hernia and small bilateral posterior diaphragmatic hernias with a short herniated segment of small bowel on the left. No associated bowel obstruction. 3. 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 mrcp 09/13/2016- IMPRESSION: 1. No MRI evidence of pancreatitis. 2. No evidence of cholelithiasis or choledocholithiasis. 3. No biliary or pancreatic ductal dilatation. RECOMMENDATIONS: 1. start clear liquid diet. advance as tolerated 2. Pain control per hospital team. 3. Outpatient endoscopic ultrasound to rule out pancreatic mass. 4. await milton, igg4 levels 5. if pt tolerate PO intake, then ok to d/c home from gi perspective and f/u gi clinic in 2 wks. 6. outpatient egd/colon for iron def anemia- iron 19, % iron sat 13% low. will address in gi office visit. Problems: VTE Prophylaxis: Sub-Q Heparin (Unfractionated) Resuscitation Status: CPR: Attempt Resuscitation Sorin Herrera MD Sep 15, 2016 07:25
[2016-09-15] MEDS ORDERED: 0.9% Sodium Chloride 1,000 ML IV ONE (08:55)
[2016-09-15 09:17] LABS: Mean Corpuscular Hemoglobin 28.5 pg (27.0-35.0); Mean Corpuscular Volume 85.3 fL (81-100)
[2016-09-15] MEDS: Dextrose 5% 0.45% NaCl 1,000 ML IV SCH (09:20)
--- NOTE | 2016-09-15 10:18 | DRSVH ---
PROCEDURE: US ABDOMEN ([id number]) INDICATIONS: 76 year-old female with pancreatitis. TECHNIQUE: Real-time scanning was performed of the abdominal and retroperitoneal organs, with image documentatio n. COMPARISON: [facility], CT, CT ABD PELVIS W CON, 09/13/2016, 15:00. [facility] al, MR, MR ABD MRCP, 09/13/2016, 20:56. FINDINGS: Liver: Liver is normal in size and homogeneous in echotexture. Gallbladder: No gallstones or biliary sludge. Gallbladder wall thickness is normal. No pericholecyst ic fluid. Biliary ducts: Intrahepatic bile ducts are non-dilated. Extrahepatic bile duct caliber measures 5.7 mm. Normal is 6-7 mm or less in diameter, or 10 mm or less post-cholecystectomy. Pancreas: Visualized portions of the pancreas are sonographically normal. Spleen: Spleen is normal in size and homogeneous in echotexture. Kidneys: Solitary right kidney measures 16 cm long. No hydronephrosis or nephrolithiasis. No solid masses. Aorta: Visualized aorta is normal in caliber at less than 3 cm. Iliacs: Proximal common iliac arteries are normal in caliber at less than 2.5 cm. IVC: Intrahepatic inferior vena cava is patent. Miscellaneous: No free abdominal fluid. IMPRESSION: 1. No gallstones are visualized to explain pancreatitis. 2. Solitary right kidney as before. Dictated by: Dhaval Serna M.D. on 09/15/2016 at 10:10 Approved by: Dhaval Serna M.D. on 09/15/2016 at 10:16
[2016-09-15] MEDS ORDERED: MeTOProlol 1 mg/mL 5 mL Inj IVPUSH ONE (13:00)
[2016-09-15 14:13] LABS: Creatine Kinase 192 U/L (21-215)
[2016-09-15] MEDS ORDERED: Magnesium Sulf 2 Gm/50mL Water 2 GM in IV Premix 1 EACH IV ONE (15:20)
--- NOTE | 2016-09-15 18:08 | DRSVH ---
PROCEDURE: X-RAY CHEST ONE VIEW, PORTABLE ([id number]) INDICATIONS: 76 year-old female with dyspnea. TECHNIQUE: One view of the chest was acquired. COMPARISON: [facility], CR, XR CHEST 1VW (PORTABLE), 09/05/2016, 9:21. [facility], CR, XR CHEST 2VW, 06/28/2015, 9:20. [facility], CR, XR CHEST 2VW, 02/07/2015, 11 :06. FINDINGS: Surgical changes and devices: None. Lungs and pleura: There is new small basal right pleural effusion. No pneumothorax. Lungs are clear. Mediastinum: Mediastinal contours appear normal. Heart size is normal. There is aortic atheroscler osis. Bones and chest wall: No suspicious bony lesions. Overlying soft tissues appear unremarkable. IMPRESSION: New small right basal pleural effusion is of uncertain etiology. Dictated by: Dhaval Serna M.D. on 09/15/2016 at 18:05 Approved by: Dhaval Serna M.D. on 09/15/2016 at 18:05
--- NOTE | 2016-09-15 18:22 | CONS ---
[address] [address] CONSULTATION REPORT PATIENT: DAVID MIXON : 1940 MR#: [id number] ADMIT: 09/13/2016 JOB ID: [id number] DATE OF SERVICE: 09/15/2016 HISTORY OF PRESENT ILLNESS: The patient is a very pleasant, 76-year-old female followed by Dr. Quesada as an outpatient who was referred to the emergency department two days ago due to abnormal lab work. This patient presented on September 05 to the emergency department after she had an episode of brief syncope. She apparently was standing at the sink washing her face when she became very lightheaded. She slid to the floor and passed out briefly. 911 was contacted and the patient was brought to the emergency department. She was noted to be normotensive with blood pressures in the 90-110 range, and in the ED records I do not see any demonstration of orthostatic hypotension, although she did have an increased heart rate with orthostatic changes. She was in normal sinus rhythm at the time and her lab work was fairly unremarkable with a normal hemoglobin, hematocrit and a mildly low sodium of 132. Her liver function tests and total bilirubin at that time were normal. It was felt that she was dehydrated and she was given fluid resuscitation and told to stop her atenolol. She was seen in consultation then by Dr. Quesada on September 12 with complaints of generalized weakness and fatigue and intermittent episodes of feeling faint or lightheaded. She also had recent complaints of loss of taste and smell that she related to the treatment with Qvar for a history of chronic cough and as well noted a history of 18 pound weight loss since December of last year. More recently, she noted a change in her urine to an orange color. Dr. Quesada ordered some blood working which included a CBC which now demonstrated evidence of mild leukocytosis with a white count of 13.9, hemoglobin down from 12.4-10.4, her hematocrit dropping from 36-30.3 and normal platelet count. Additionally, however, her basic metabolic panel showed a decreased sodium at 128 and moderate elevation in her liver function tests with an ALT and AST of 48 and 44, total bilirubin increased to 1.5, and an abnormal alkaline phosphatase of 150. Because of these abnormalities, she was sent to the emergency department and was admitted for evaluation. The patient was admitted and kept n.p.o. with suspected diagnosis of pancreatitis, although subsequent CT scan and MRI scan show no evidence of pancreatitis or cholelithiasis. Early this morning, the patient pressed her call light because of reports of dyspnea and dizziness and weakness. Her blood sugar was unremarkable. She was given a fluid bolus and subsequently felt better. Later this morning, she was noted to be tachycardic with heart rates into the 130 range and mildly dyspneic and subsequently she was put on telemetry. She was given intravenous metoprolol for apparent atrial fibrillation and subsequently was noted to have periods of 3-4 second pauses related to cessation of the atrial fibrillation and resumption of sinus rhythm. This occurred a number of times early this afternoon and subsequently she has been able to maintain a normal sinus rhythm since about 3 o'clock. I was consulted to assist with her evaluation for intermittent atrial fibrillation and significant intermittent sinus pauses. The patient is comfortable this afternoon, although she looks weak and tired. She also appears mildly tachypneic. She denies a history of exertional angina or significant limiting exertional dyspnea. Her primary pulmonary complaint has that been that of a dry, hacky, nonproductive cough felt to be possible allergies or asthma. She confirms the history of taste and smell loss and her records confirm a 10 kg weight loss dating back to December 2015. She denies any symptoms of abdominal discomfort whatsoever. Her appetite is poor, she feels primarily related to the loss of her taste and smell. She states that up until about a month ago. She was able to work out at the gym twice a week and again had no limiting symptoms. Since then, she has been aware of intermittent episodes of fairly significant exertional dyspnea. She has no known past cardiac history. PAST MEDICAL HISTORY: Otherwise includes depression and anxiety, history of hypertension, as mentioned. MEDICATIONS: As of September [address] Quesada's records include: 1. Albuterol inhaler. 2. Alendronate 70 mg tablet daily. 3. Amlodipine 5 mg daily. 4. Aspirin 81 mg daily. 5. Atenolol 25 mg daily. 6. Atorvastatin 10 mg daily. 7. Clonazepam 0.5 mg once or twice daily. 8. Fluoxetine 20 mg daily. 9. Fluticasone nasal spray and suspension daily in both nostrils. 10. Losartan 100 mg daily. 11. Multivitamin daily. 12. Omeprazole 20 mg daily. 13. Qvar inhaler twice daily though again her atenolol was discontinued a week ago in the emergency department. ALLERGIES: Include: 1. PENICILLIN. 2. SULFA. 3. HYDROCODONE. 4. CAT DANDER. 5. OXYCODONE. PAST SURGICAL HISTORY: 1. Previous sigmoid colectomy. 2. Oophorectomy. 3. Hemorrhoidectomy. 4. Appendectomy. SOCIAL HISTORY: The patient lives with her who is followed in the Cardiology Clinic. PHYSICAL EXAMINATION: Shows a somewhat fatigued and rather weak, 76-year-old female. HEENT examination is remarkable only for some mild grayish tint to her skin, perhaps mild pallor. I do not detect any obvious icterus or jaundice. Jugular venous pressure is moderately increased with prominent V waves noted in the jugular venous pulse to the angle of the jaw at about 60 degrees. Carotid upstroke is normal. No carotid bruits. Lung suárez demonstrate absence of rales, rhonchi or wheezing. Cardiac examination is notable for regular rate and rhythm. First and second heart sounds are normal and no significant cardiac murmurs are identified. Abdomen is notable for some mild right upper quadrant tenderness. Bowel tones are normal. No abdominal distention. Distal extremities are warm and well perfused. There is no edema. Distal pedal pulses are present. LABORATORY DATA: Notable for urine that shows a few red blood cells but otherwise is unremarkable with no bilirubin. Her white count has increased this morning at 15.1 thousand and her hemoglobin is down to 9.1, with a hematocrit of 27. Serum lipase bumped up yesterday from 584 on admission to 842 and this morning is down to 89. She has iron deficiency with a low iron and TIBC. Serum ferritin is increased. Transaminases are moderately increased and sodium is somewhat improved this afternoon at 131. Total cholesterol is 93 with an LDL cholesterol of 58. Pro calcitonin is moderately increased. IMPRESSION: 1. Paroxysmal atrial fibrillation with sick sinus syndrome and symptomatic sinus pauses likely accounting for the patient's history of intermittent lightheadedness and syncope. 2. Intermittent symptoms of fairly significant dyspnea which also might be related to paroxysmal atrial fibrillation. Certainly, currently is likely compounded by her multiple metabolic abnormalities and progressively severe anemia. 3. Progressive weight loss over the past 7-8 months, unexplained, possibly related to sensory deficit felt to be due to her Qvar. 4. Abnormal liver function tests. 5. Possible gallstone pancreatitis given her fairly prominent elevation in lipase and amylase with fairly quick resolution. This all, however, without any kind of abdominal discomfort. I am concerned also about her progressive weight loss. DISCUSSION: I have suggested to this patient that the pacemaker may be necessary, but I would prefer to see her metabolic abnormalities corrected and gain some insight as to the underlying abdominal problem before committing to pacemaker therapy. I will ask Dr. Brown, my partner, to follow up on this patient's clinical course tomorrow, and she can make a decision as to whether or not this patient might need to proceed with pacemaker therapy and appropriate timing of such.
--- NOTE | 2016-09-15 21:28 | PCM.PNMED ---
Subjective Date of Service Sep 15, 2016 Subjective Patient is seen and examined. She has been tachycardic this morning, she is placed on telemetry. Troponin was negative, ultrasound of the echo is ordered. She says she feels asymptomatic, wanting to eat. She denies any abdominal discomfort or nausea. Exam Vital Signs Vital Sign - Last Date Time Temp Pulse Resp B/P Pulse Ox O2 Delivery O2 Flow Rate FiO2 09/15/16 20:00 89 09/15/16 19:37 19 123/73 94 Room Air 09/15/16 08:48 37.9 Intake and Output 09/14/16 09/14/16 09/15/16 Cumulative From/Thru 15:00 23:00 07:00 09/13/16 13:32 - 09/15/16 06:12 Intake Total 400 ml 1455 ml 1545 ml 6553 ml Output Total 1100 ml 400 ml 1500 ml Balance -700 ml 1055 ml 1545 ml 5053 ml Intake Oral 400 ml 0 ml 400 ml IV Total 1455 ml 1545 ml 6153 ml Output Urine Total 1100 ml 400 ml 1500 ml # Voids 6 2 8 # Bowel Movements 0 0 Exam General: NAD HEENT:NCAT Heart: tachycardic, regular Lungs: CTA, no crackles/wheezes Abd: NT/ND, normal bowel sounds Ext: No edema psych: resigned affect neuro: no focal deficits IVs and Medications Medications Reviewed: Medications were reviewed in detail Lab and Diagnostics Result Diagram: 09/15/16 0835 09/15/16 0835 X-Rays, CTs and MRIs Abdominal CT 1. No definite acute intra-abdominal abnormality. 2. Small sliding hiatal hernia and small bilateral posterior diaphragmatic hernias with a short herniated segment of small bowel on the left. No associated bowel obstruction. 3. 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 Dictated by: Mike Gale M.D. on 09/13/2016 at 15:50 Assessment & Plan 76-year-old female presents due to abnormal blood work with reporting near syncopal episodes, anorexia, intermittent nausea, and soft stools when she is chronically constipated, with elevated LFTs with concern for biliary source. Paroxysmal A. fib with sick sinus syndrome, active -- Patient has a history of syncope, she has had tachycardia couple of times during this admission. -- Pseudogout from nursing regarding her tachycardia this a.m. patient was placed on telemetry EKG was ordered, 5 mg of IV metoprolol as given. -- Telemetry monitoring showed sinus pauses ranging from 3-6 seconds, patient eventually converted to normal sinus rhythm. -- Cardiology is consulted, the above impression is according to their notes. We appreciated recommendations very much -- Recommendations from Dr. Foster:"I have suggested to this patient that the pacemaker may be necessary, but I would prefer to see her metabolic abnormalities corrected and gain some insight hilton to the underlying abdominal problem before committing to pacemaker therapy.mI will ask Dr. Brown, my partner, to follow up on this patient's clinical course tomorrow, and she can make a decision as to whether or not this patient might need to proceed with pacemaker therapy and appropriate timing of such." -- Magnesium levels are under 1.5, 2 g of IV magnesium is given -- Cautious with any kind of sinus blockades she has shown several pauses Sepsis secondary to biliarysource ; present on admission; ruled out -Initially patient did not have fever but did have moderate leukocytosis; once admitted to the floor she developed a fever and tachycardia -Concern for cholangitis due to elevated alkaline phosphatase and LFTs, bili is WNL..Ruled out due to normal MRCP, lack of jaundice -After initial fluid resuscicaiton, stopped fluids as it appears Dr. Foster ordered BNP and it is rather elevated -Ertapenem given in the ED, one dose on the floor -Blood cultures were not taken prior to initiation of antibiotics in the ED: Negative to date --Improved leukocytosis 14.7-11.8 --Right upper quadrant scan is not performed because of weekend Pancreatitis likely second to gallstone; present on admission; improved -Lipase 584--842, and elevated LFTs consistent with bile duct obstruction -CT did not demonstrate findings of overt pancreatitis -BUN and hematocrit to make criteria for severe pancreatitis -MRCP ordered showed no concern for CBD dilation, or Cholelithiasis or choledocholithiasis -Patient will be allowed to take clears as tolerated -Lipase is steadily improving --Patient is given a liter bolus this am, it appears that she was switched to D5 half-normal saline at 100 mL/h overnight. --Discontinue fluids for now due to elevated bnp. ----Celiac panel is ordered --GI is consulted: Recommend autoimmune panel and IgG four, Conservative management followed by outpatient endoscopic ultrasound to rule out malignancy. Anemia of chronic disease; present on admission; ongoing -Hemoglobin is 11.0 -B12/folate studies were within normal -If continues to drop we will check haptoglobin and smear Hyponatremia likely secondary to dehydration; present on admission; improving -Patient presents with pancreatitis and appears dehydrated --Urine tests and serum osm show hypovolemia -- IVF were stopped after initial hydration due to elevated bnp Disposition: Patient is being admitted to inpatient status with expected length of stay greater than two midnights due to to severity of presentation, duration of treatment, and risks of adverse events disposition DNR/DNI, is alternate decision-maker Pain Evaluation: Adequate Pain Control VTE Prophylaxis: Sub-Q Heparin (Unfractionated) VTE Mechanical Devices: Intermittant Pneumatic CD Resuscitation Status: CPR: Attempt Resuscitation Time spent 25 minutes Delia Brower DO Sep 15, 2016 21:28
[2016-09-15] MEDS ORDERED: Furosemide 10 mg/mL 4 mL Inj IVPUSH ONE (23:00)
[2016-09-16] VITALS (9 sets, daily range): BP systolic 105–152; BP diastolic 50–81; PULSE 67–139; RESP 16–20; O2SAT 94–99
[2016-09-16] MEDS: Heparin 5,000 Unit/mL Inj SUBQ SCH ×3 (00:49→17:14)
[2016-09-16] MEDS ORDERED: Potassium Chloride 20 mEq SR Tablet PO ONE ×2 (07:35→13:15)
[2016-09-16] MEDS ORDERED: Magnesium Sulf 2 Gm/50mL Water 2 GM in IV Premix 1 EACH IV ONE ×2 (07:35→13:15)
[2016-09-16 08:27] LABS: Mean Corpuscular Hemoglobin 28.6 pg (27.0-35.0); Mean Corpuscular Volume 85.4 fL (81-100)
--- NOTE | 2016-09-16 11:07 | PCM.PNSURG ---
Subjective Date of Service: Sep 16, 2016 Date of Service: Sep 16, 2016 Visit Information: Reason for Visit Pancreatitis,Hyponatremia Surgery/Surgery Date Post-Op Day # Date of Admission: Sep 13, 2016 at 17:36 Hospital Day # Subjective: Gastroenterology Progress Note Patient developed shortness of breath overnight that improved with lasix and d/ c fluids. Patient tolerated full liquids this morning. Patient currently is lying comfortably in bed with no complaints. Postop General: Shortness of Breath (improved) Gastrointestinal: Tolerating Oral Feedings, No N/V Objective Vital Sign- Last 8 Hours Date Time Temp Pulse Resp B/P Pulse Ox O2 Delivery O2 Flow Rate FiO2 09/16/16 08:18 36.7 101 19 146/81 94 OxyMask 4.00 09/16/16 06:03 37.8 80 16 114/64 95 OxyMask 3.00 Intake and Output- Last 8 Hour 09/16/16 Cumulative From/Thru 07:00 09/13/16 13:32 - 09/16/16 06:35 Intake Total 950 ml 43173 ml Output Total 1750 ml 4650 ml Balance -800 ml 5419 ml Intake Oral 500 ml 1700 ml IV Total 450 ml 8369 ml Output Urine Total 1750 ml 4650 ml # Voids 10 # Bowel Movements 0 General: Alert, Oriented X3, No Acute Distress Lungs: Crackles (in bases) Heart: Exam Unremarkable Abdomen: Benign, Soft, Appropriately tender, Non-distended, Normoactive bowel tones Extremities: Warm Neuro: Grossly Neurologically Intact Result Diagram: 09/16/16 0503 09/16/16 0503 Assessment & Plan Impression This is a pleasant, 76-year-old, female with a history of colon resection due to diverticulitis in which 14 inches were removed, appendectomy, hemorrhoidectomy, arthrectomy, GERD, hyperlipidemia, depression, torn meniscus, benign paroxysmal positional vertigo, anxiety, shoulder pain, who presents for consultation for nausea, weight loss and now abdominal pain with a lipase on admission of 584 and now 842. By definition, the patient has acute pancreatitis given the fact she has epigastric pain and lipase greater than three times upper limit normal. The patient will need an outpatient endoscopic ultrasound to rule out pancreatic mass even though the MRCP is negative given her age of greater than 50 with acute pancreatitis. The patient may have also passed a gallstone during this point in time which is part of the differential. CT abdomen pelvis contrast 09/13/2016- IMPRESSION: 1. No definite acute intra-abdominal abnormality. 2. Small sliding hiatal hernia and small bilateral posterior diaphragmatic hernias with a short herniated segment of small bowel on the left. No associated bowel obstruction. 3. 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 MRCP 09/13/2016- IMPRESSION: 1. No MRI evidence of pancreatitis. 2. No evidence of cholelithiasis or choledocholithiasis. 3. No biliary or pancreatic ductal dilatation. RECOMMENDATIONS: 1. Patient tolerated liquids continue to advance as tolerated. 2. Pain control per hospital team. 3. Outpatient endoscopic ultrasound to rule out pancreatic mass. 4. Await milton, igg4 levels 5. If patient tolerates advancing diet, then ok to d/c home from GI perspective and f/u in GI clinic in 2 weeks. 6. Outpatient EGD/colon for iron def anemia- iron 19, % iron sat 13% low. Will address in GI office visit. GI will sign off at this time. Feel free to contact us if additional questions arise. Problems: VTE Prophylaxis: Sub-Q Heparin (Unfractionated) Resuscitation Status: CPR: Attempt Resuscitation AMOS YU DO Sep 16, 2016 08:50
--- NOTE | 2016-09-16 14:02 | DRSVH ---
[facility] [address] [place] [address] Echocardiogram Report Name: DAVID MIXON te: 09/16/2016 Height: 6 2 in Hospital Exam Location: [facility] Weight: 1 21 lb Gender: Female BSA: 1.5 m2 : 1940 Age: 76 yrs BP: 114/6 4 mmHg Reason For Study: Atrial fibrillation Ordering Physician: Jas Montalvo Performed By: Delma Roland Referring Physician: Dr. Rudy Quesada Interpretation Summary The left ventricle is normal in size. The ejection fraction is estimated to be 60-65%. The right ventricle is normal in size, thickness and function. There is mild to moderate mitral regurgitation. There is mild tricuspid regurgitation. The right ventricular systolic pressure is estimated at 37 mmHg assuming a right atrial pressure of 3 mm Hg. Procedure: A two-dimensional transthoracic echocardiogram with color flow and Doppler was performed. The study quality was technically good. There is no prior echocardiogram noted for this patient. The patient was in normal sinus rhythm during the exam. intermittent atrial bigeminey. Left Ventricle: The left ventricle is normal in size. Proximal septal thickening is noted. There is no echo evidence for significant left ventricular outflow tract obstruction. There is no thrombus. The ejection fraction is estimated to be 60-65%. There are no focal wall motion abnormalities. E/E' mildly abnormal. Right Ventricle: The right ventricle is normal in size, thickness and function. Atria: The left atrium is moderately dilated. Right atrial size is normal. The interatrial septum is intact with no evidence for an atrial septal defect. Mitral Valve: The mitral valve leaflets appear mildly thickened, but open well. The mitral valve leaflets are slightly calcified. There is mild to moderate mitral regurgitation. Aortic Valve: The aortic valve is trileaflet. The aortic valve opens well. The aortic valve is slightly calcified. There is no aortic valve stenosis. No aortic regurgitation is present. Tricuspid Valve: The tricuspid valve is normal. There is mild tricuspid regurgitation. The right ventricular systolic pressure is estimated at 37 mmHg assuming a right atrial pressure of 3 mm Hg. Pulmonic Valve: The pulmonic valve is not well seen, but is grossly normal. There is trace pulmonic regurgitation. Great Vessels: The aortic root is normal size. The dimensions of the ascending aorta are normal. The IVC is of normal diameter and collapses greater than 50% with a sniff. This suggests a low right atrial pressure of 3 mm Hg. Pericardium/ Pleura There is no pericardial effusion. There is an anterior echo-free space consistent with a fat pad. There is no pleural effusion. MMode/2D Measurements & Calculations LVIDd: 4.2 cm LA dimension: 4.0 cm RVDd major Ao root diam LVIDs: 2.3 cm : 5.6 cm FS: 46.4 % LA A2 area: 21.1 cm Aortic Jxn: 2.5 cm IVSd: 0.91 cm LA A4 area: 22.4 cm asc Aorta Diam LVPWd: 0.62 cm LA length (vol) Ao Arch Diam (Prox LA vol: 72.2 ml Trans): 2.5 cm LA vol index IVC diam: 1.9 cm LV matson. diameter/BSA LV sys. diameter/BSA RVD1 (basal) RVD2 (mid): 2.6 cm (cm/m^2): 2.7 (cm/m^2): 1.5 Doppler Measurements & Calculations Ao V2 max MV E max mp MV E/A: 1.5 TR max mp : 188.7 cm/sec : 83.3 cm/sec Med Peak E' Mp : 290.9 cm/sec Ao max PG MV A max mp TR max PG : 14.2 mmHg : 56.6 cm/sec E/E' med: 12.8 : 33.9 mmHg Ao mean PG MV P1/2t: 46.3 msec Lat Peak E' Mp PA V2 max : 7.4 mmHg : 90.9 cm/sec MR ERO: 0.17 cm2 E/E' lat: 9.3 PA mean PG E/e' average: 11.0 MV A dur: 0.14 sec PA Accel Time : 0.08 sec MV dec time MV P1/2t max mp Ao V2 mean MR flow rate : 0.14 sec : 125.3 cm/sec Ao V2 VTI: 38.2 cm : 94.0 cm3/sec MVA(P1/2t): 4.8 cm2 MR PISA radius PA V2 mean : 52.8 cm/sec Reading Physician:PM
[2016-09-16] MEDS ORDERED: MeTOProlol 1 mg/mL 5 mL Inj IVPUSH ONE (15:00)
[2016-09-17] VITALS (9 sets, daily range): BP systolic 96–137; BP diastolic 56–80; PULSE 71–86; RESP 18–20; O2SAT 96–99
[2016-09-17] MEDS: Heparin 5,000 Unit/mL Inj SUBQ SCH ×3 (00:05→18:10)
[2016-09-17 03:11] LABS: Vitamin B12 >1999 pg/mL (211-946)
--- NOTE | 2016-09-17 03:47 | PCM.PNMED ---
Subjective Date of Service Sep 16, 2016 Subjective Patient is on 4L of oxygen, seen by Dr. Carpenter and Dr. Knowles. Dr. Brown ordered pads for possible electroconversion, asked patient to be takig to the second floor. She is going into afib with RVR this am. PAtient apparently was dyspneic overnight and needed lasix administration. Exam Vital Signs Vital Sign - Last Date Time Temp Pulse Resp B/P Pulse Ox O2 Delivery O2 Flow Rate FiO2 09/16/16 12:59 36.9 139 19 113/50 96 OxyMask 4.00 Intake and Output 09/15/16 09/15/16 09/16/16 Cumulative From/Thru 15:00 23:00 07:00 09/13/16 13:32 - 09/16/16 06:35 Intake Total 0 ml 2566 ml 950 ml 00020 ml Output Total 300 ml 1100 ml 1750 ml 4650 ml Balance -300 ml 1466 ml -800 ml 5419 ml Intake Oral 0 ml 800 ml 500 ml 1700 ml IV Total 1766 ml 450 ml 8369 ml Output Urine Total 300 ml 1100 ml 1750 ml 4650 ml # Voids 2 10 # Bowel Movements 0 0 0 Lab and Diagnostics Result Diagram: 09/16/16 0503 09/16/16 1330 X-Rays, CTs and MRIs Abdominal CT 1. No definite acute intra-abdominal abnormality. 2. Small sliding hiatal hernia and small bilateral posterior diaphragmatic hernias with a short herniated segment of small bowel on the left. No associated bowel obstruction. 3. 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 Dictated by: Mike Gale M.D. on 09/13/2016 at 15:50 Assessment & Plan 76-year-old female presents due to abnormal blood work with reporting near syncopal episodes, anorexia, intermittent nausea, and soft stools when she is chronically constipated, with elevated LFTs with concern for biliary source. Paroxysmal A. fib with sick sinus syndrome, active -- Patient has a history of syncope, she has had tachycardia couple of times during this admission. -- Pseudogout from nursing regarding her tachycardia this a.m. patient was placed on telemetry EKG was ordered, 5 mg of IV metoprolol as given. -- Telemetry monitoring showed sinus pauses ranging from 3-6 seconds, patient eventually converted to normal sinus rhythm. -- Cardiology is consulted, the above impression is according to their notes. We appreciated recommendations very much -- Recommendations from Dr. Carpenter:"I have suggested to this patient that the pacemaker may be necessary, but I would prefer to see her metabolic abnormalities corrected and gain some insight hilton to the underlying abdominal problem before committing to pacemaker therapy.mI will ask Dr. Brown, my partner, to follow up on this patient's clinical course tomorrow, and she can make a decision as to whether or not this patient might need to proceed with pacemaker therapy and appropriate timing of such." -- AM K =3.4 Mag=1.6, Cardiology has repleted these when they saw the pt -- Cautious with any kind of sinus blockades she has shown several pauses, Dr. Brown asks for 5 mg IV metoprolol followed by 25 BID PO as metoprolol worked yesterday to convert her, though we noticed some pauses after that. -- US Echo:"The left ventricle is normal in size.The ejection fraction is estimated to be 60-65%. The right ventricular systolic pressure is estimated at 37 mmHg assuming a right atrial pressure of 3 mm Hg." -- TSH is ordered and WNL Sepsis secondary to biliary source ; present on admission; ruled out -Initially patient did not have fever but did have moderate leukocytosis; once admitted to the floor she developed a fever and tachycardia -Concern for cholangitis due to elevated alkaline phosphatase and LFTs, bili is WNL..Ruled out due to normal MRCP, lack of jaundice -After initial fluid resuscitation, stopped fluids as it appears Dr. Carpenter ordered BNP and it is rather elevated on 09/15 -Ertapenem given in the ED, one dose on the floor, stopped -Blood cultures were not taken prior to initiation of antibiotics in the ED: Negative to date --leukocytosis has resolved --Right upper quadrant scan 09/15: No gallstones are visualized to explain pancreatitis. -- Solitary right kidney chronic stable -- Avoid nephro toxic agents Pancreatitis likely second to gallstone; present on admission; improved -Lipase [id number], and elevated LFTs consistent with bile duct obstruction -CT did not demonstrate findings of overt pancreatitis -BUN and hematocrit to make criteria for severe pancreatitis -MRCP ordered showed no concern for CBD dilation, or Cholelithiasis or choledocholithiasis -Patient will be allowed to take clears as tolerated -Lipase is steadily improving -Celiac panel is ordered, pending result -GI is consulted: Recommend autoimmune panel and IgG four, Conservative management followed by outpatient endoscopic ultrasound to rule out malignancy. Hyperbillirubinemia, active -- 2.1 , quite elevated. She also has worsening leukocytosis. DDX include sepsis vs malignancy -- CA19-9 is ordered -- Concern for ascending cholangitis, though no fever or RUQ pain -- May need antibiotics again, consider ID consult (consult is placed, need to call Dr. Abbott in the am) -- Ordered direct vs indirect split -- Discuss with GI as they are consulted for this patient. Anemia of chronic disease; mild present on admission; ongoing -Hemoglobin is 11.0 -B12/folate studies were within normal -If continues to drop we will check haptoglobin and smear Hyponatremia likely secondary to dehydration; present on admission; improving -Patient presents with pancreatitis and appears dehydrated --Urine tests and serum osm show hypovolemia --IVF were stopped after initial hydration due to elevated bnp Unintentional weight loss, poa --Again, concern for malignancy --Her diet either needs to be advanced or she will need a PICC line. -- Clarify elevated biliw ith GI, then proceed to liquid diet based on their suggestions. Disposition: Patient is being admitted to inpatient status with expected length of stay greater than two midnights due to to severity of presentation, duration of treatment, and risks of adverse events disposition DNR/DNI, is alternate decision-maker Pain Evaluation: Adequate Pain Control VTE Prophylaxis: Sub-Q Heparin (Unfractionated) VTE Mechanical Devices: Intermittant Pneumatic CD Resuscitation Status: CPR: Attempt Resuscitation Time spent 25 min Delia Brower DO Sep 16, 2016 15:01
[2016-09-17 05:37] LABS: Bilirubin, Direct 0.5 mg/dL (0.0-0.3)
--- NOTE | 2016-09-17 10:26 | CONS ---
[address] [address] CONSULTATION REPORT PATIENT: DAVID MIXON : 1940 MR#: [id number] ADMIT: 09/13/2016 JOB ID: [id number] DATE OF SERVICE: 09/17/[address] Delia Brower for this timely consult. REASON FOR CONSULTATION: Possible biliary tract infection. HISTORY OF PRESENT ILLNESS: The patient is a 76-year-old woman with a relatively minimal past medical history notable for diverticulitis with a small amount of bowel resected during her prior surgery as well as appendectomy in the past and benign positional vertigo. Otherwise, she is quite healthy. She presented to the emergency department on the complaining of weakness, fatigue, weight loss, orangish urine, and reporting some abnormal labs that have been obtained by her primary care doctor, Dr. Quesada. She tells me additionally that in addition to generalized anorexia and malaise she has had an impressive weight loss which she thinks is about 20 pounds over the last month or two, which has been accompanied by drenching night sweats. She has little to go with this persistent anorexia though and tells me she has occasional right-sided abdominal pain, but it is not severe. It is not associated with nausea or vomiting or diarrhea. She denies having had fever or chills though she does report that she feels warm when she has these drenching night sweats. In any event, she was admitted through the emergency department on the with the above-mentioned complaint as well as the finding of the elevated white count, mild hyponatremia, and mildly elevated bilirubin. The patient also reports numerous episodes of near-syncope and one episode of true syncope over the last month or two which seems to go along rapidly with a period of weight loss, night sweats, and anorexia. Following admission, the patient was noted to have elevated lipase which was more than three times the upper limit of normal and in association with her fairly vague in minimal abdominal pain as well as her weight loss this was felt to be adequate for a diagnosis of pancreatitis. She is a nondrinker and attention was then focused on her gallbladder and biliary tree, but imaging studies have not shown any evidence of current gallstone pancreatitis. ID consultation is requested today regarding the need for antibiotics in this patient with leukocytosis. PAST MEDICAL HISTORY: Minimal: 1. Hyperlipidemia. 2. Diverticulitis status post resection of a short segment of the left side of the colon. 3. Benign positional vertigo. 4. Status post appendectomy. SOCIAL HISTORY: The patient is a nonsmoker, nondrinker. She lives in [place] with her . She has traveled widely, but mainly on cruise ships without any sustained on land travel to [place] or [place]. FAMILY HISTORY: Negative for tuberculosis in first or second-degree relatives. REVIEW OF SYSTEMS: Done in detail. The patient tells me she has had episodic headaches and these seemed to be worsening over the last month or two. She does not have any acute visual change though. She notes that her mucous membranes around the mouth are often dry, but she has no sore throat or trouble swallowing per se. She has not noticed any swollen lymph nodes. She states she is occasionally short of breath and can produce some thin sputum with intermittent cough and this also seems worse recently. No chest pain has been noted. She has had some mild right-sided abdominal pain and occasionally apparently some epigastric pain though she did mention that to me, but it was noted in prior notes from this admission. She has had anorexia which has been quite severe over the last month or two in association with her night sweats, but no vomiting or diarrhea per se. She has had no dysuria, urgency, or frequency. No swelling of the joints. No skin rashes and no focal weakness though in general she has been weaker recently. She denies fever or chills, but does have drenching sweats for the last month or two. REVIEW OF SYSTEMS: Otherwise negative. PHYSICAL EXAMINATION: Reveals a somewhat tired appearing woman in no acute distress. Her BMI is currently 24. Temperature is 37. During her four days here in the hospital she has had one temperature over 38 and that was 38.1 at 6:00 p.m. on the day of admission, otherwise afebrile. Pulse 71, respiratory rate 18, blood pressure 98/56. She is saturating well, but requiring 3 L of oxygen for unclear reasons given her nonsmoking situation. Examination of the mental status reveals she is alert and oriented, though a bit slow in terms a word finding, but her answers do eventually make sense. She has some mild temporal wasting by my exam. No head trauma. Eyes without conjunctivitis or scleral icterus. Oral cavity without thrush or pharyngitis. No gingival lesions. Neck is supple, no adenopathy or JVD. Lungs with a few crackles at the bases, but basically clear. Cardiac tones regular rate and rhythm, no significant murmurs noted. The abdomen is relatively soft with some minimal tenderness in the right lower abdomen, just lateral to the umbilicus. No palpable masses are appreciated. No hepatosplenomegaly. No ascites. No suprapubic fullness. She does not have a Dotson. No inguinal adenopathy is noted. The extremities are well perfused with good peripheral pulses. No evidence of synovitis. No cellulitis. No skin rash. The back is nontender. Neurologically the patient is intact. LABS: Include white count which has ranged from 14-17,000 since admission. The diff shows mild neutrophil predominance. Her creatinine 0.73. Bilirubin 1.7. Direct bilirubin 0.5. Procalcitonin 0.25. Urinalysis without white cells. Blood cultures on the negative. Blood cultures from the are pending, though I am not certain why. IMAGING STUDIES: Include an abdominal CT done on admission, which showed no definite abnormal abnormality in the abdomen. She has a solitary right kidney, however. MRCP was done on the as well. It shows no evidence of pancreatitis, no evidence of cholelithiasis or choledocholithiasis and no abnormalities of the pancreatic ductal system. Chest x-ray shows a small right pleural effusion of unknown etiology. An abdominal ultrasound shows no gallstones and a solitary right kidney. Echocardiogram was also done which shows normal left ventricular ejection fraction, though elevated right-sided pressures are noted. IMPRESSION: The overall flavor of this case sounds more malignant to me than infectious. There is little here to suggest infection other than a persistent leukocytosis of around 15,000. The patient did have an elevated lipase when she came in at 584 which bumped up to 850 and was down to 78 by yesterday, which suggest a resolving pancreatitis, possibly from a gallstone which has passed. There is little to suggest ongoing systemic infection as we have negative blood cultures. Essentially normal procalcitonins with two measurements less than or equal to 0.25. No fevers. No significant chills and a story which sounds more like malignancy to me. The patient reports a month or two of steady and profound weight loss associated with night sweats, fatigue, and anorexia. This is in association with an unexplained leukocytosis. Her elevated white count could certainly be due to her pancreatitis, which may be was due to a passed gallstone, but the longer that the white count persists the more I worry about possible occult solid tumors. It is also notable that the patient is a nonsmoker and is currently requiring 3 L of oxygen and her initial chest x-ray showed what appeared to be a small pleural effusion. I have personally reviewed this x-ray and find that of some concern. RECOMMENDATIONS: 1. No antibiotics at this time. 2. We await the maturation of the blood cultures which have already been done. 3. CT scan of the chest without contrast has been ordered. 4. I would consider imaging of the brain given her rather significant and recent onset history of headache. 5. I will continue to follow this patient with you, but at this point, I think we are looking at a possible search for malignancy rather than infection. NAZIA
--- NOTE | 2016-09-17 16:03 | DRSVH ---
PROCEDURE: CT CHEST WITHOUT CONTRAST ([id number]) INDICATIONS: wt loss, cough, SOB TECHNIQUE: Noncontrast 5 mm thick sections acquired from the pulmonary apices to the posterior costophrenic angl es. 7 mm thick coronal and sagittal MIP reformats were then acquired. For radiation dose reduction, the following was used: automated exposure control, adjustment of mA and/or kV according to patient size. COMPARISON: [facility], CR, XR CHEST 1VW (PORTABLE), 09/05/2016, 9:21. [facility], CT, CT CHEST WO CON, 02/01/2015, 11:55. FINDINGS: Image quality: Good Lungs and pleura: Some air bronchograms are seen bibasilar early associated with small pleural effusi ons. The appearance would be consistent with bibasilar pneumonias with effusions. The appearance does not appear to be that of congestive failure. Mediastinum: Heart size is normal. No pericardial effusion. No mediastinal adenopathy by size crit eria. Thoracic aorta and central pulmonary arteries are normal in size. Esophagus is normal in henri avani. No hiatal hernia. Bones and chest wall: No suspicious bony lesions. No vertebral body compression fractures. No axil tj or supraclavicular adenopathy by size criteria. Thyroid gland is within normal limits. Abdomen: Visualized upper abdominal solid organs and bowel loops appear normal in the absence of con trast. IMPRESSION: Bilateral lower lobe infiltrates with small effusions consistent with pneumonias. Dictated by: Neo Kim M.D. on 09/17/2016 at 15:56 Approved by: Neo Kim M.D. on 09/17/2016 at 16:00
--- NOTE | 2016-09-17 17:09 | DRSVH ---
PROCEDURE: MRI BRAIN WITH AND WITHOUT CONTRAST ([id number]) INDICATIONS: r/o abscess, vasculitis, neoplasm TECHNIQUE: Noncontrast axial T1 spin echo, axial T2 fast spin echo, sagittal and axial FLAIR, coronal T2 fast sp in echo, axial gradient echo, axial diffusion and ADC through the brain. After the administration of contrast, axial and coronal T1 spin echo with fat saturation through the brain. COMPARISON: [facility] [place] , CT, BRAIN W/O CONTRAST, 01/03/2011, 13:01. FINDINGS: Image quality: Excellent. CSF spaces: Basal cisterns are patent. No extra-axial fluid collections. Ventricles are normal in size and shape. Brain: No midline shift. No intracranial bleeds or masses. No abnormal intracranial enhancement. There is cerebral volume loss for age. The brainstem appears normal. Diffusion-weighted images demo nstrate no acute ischemic insults. No chronic ischemic insults. Normal intravascular flow voids are present. Skull and face: Calvarial marrow is normal in signal. Orbits appear normal. Sinuses: Mild right maxillary sinus mucosal thickening is noted. The mastoids appear clear. IMPRESSION: 1. Mild cerebral volume loss. No acute intracranial abnormality. 2. Mild right maxillary sinus mucosal thickening. Dictated by: Adam Kirk M.D. on 09/17/2016 at 16:06 Transcribed by: HANANE on 09/17/2016 at 16:08 Approved by: Adam Kirk M.D. on 09/18/2016 at 11:34
[2016-09-18] VITALS (8 sets, daily range): BP systolic 95–145; BP diastolic 56–76; PULSE 58–86; RESP 16–20; O2SAT 94–100
[2016-09-18] MEDS: Heparin 5,000 Unit/mL Inj SUBQ SCH ×3 (01:26→17:31)
--- NOTE | 2016-09-18 03:14 | PROG NOTE ---
[address] [address] PROGRESS NOTE PATIENT: DAVID MIXON : 1940 MR#: [id number] ADMIT: 09/13/2016 JOB ID: [id number] DATE: 09/18/2016 CHIEF COMPLAINT: Syncope. SUBJECTIVE: Overnight, patient had no recurrence of syncope. She denies fevers or chills, but she said that she feels weak and has a headache. Of note, MRI performed today shows no evidence of intracranial hemorrhage or abnormalities beyond age-related mild cerebral volume loss. OBJECTIVE: Vital signs: Temperature 37.7 degrees, blood pressure 96/56, up to 137/80, pulse 71, up to 88 beats per minute. She satting 96% to 99% on 2-3 L nasal cannula. Thin elderly woman lying in bed in no apparent distress. Eyes: No scleral icterus. Heart: Normal S1, S2. No murmurs. Lungs: Clear to auscultation anteriorly. Abdomen: Soft. Positive bowel sounds. No hepatosplenomegaly. Extremities: Warm, well perfused. No clubbing, cyanosis, or edema. Skin: No rashes or lesions. MEDICATIONS: Reviewed. She is on: 1. Metoprolol tartrate 25 mg twice a day. 2. Heparin subcu for DVT prophylaxis. 3. Of note, she is not on any antibiotics. 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 She had a syncopal episode at home. Under normal circumstances, her tachybrady syndrome would warrant permanent pacemaker implant. However, given her elevated white blood cell count, , anemia, elevated alkaline phosphate and transaminitis, there was a concern for occult infection. I appreciate Dr. Abbott's consultation there are no obvious infectious symptoms identified there is no indication for antibiotic at this time. Her workup so far included various imaging modalities and bilateral pleural effusions that were quite small on my review of the CT scan were identified. The interpreting radiologist was concerned for bilateral pneumonia but it is not clear what is the nature of these effusions. For that reason, right now pacemaker implant is deferred until diagnosis for her elevated white blood count can be reliably established. In the interim, we will work on medication adjustment. I increased metoprolol tartrate dose from 25 mg twice a day to 25 mg by mouth every 6 hours and will monitor her closely. Thank you very much for the opportunity to evaluate her. In terms of risk of stroke, under normal circumstances, again this patient would warrant oral anticoagulation for stroke prevention. However, because of her worsening anemia in the course of her hospitalization, creatinine falling from 32% down to 26%, that seems like not a good option for her. As a result, I only recommend aspirin 325 mg daily, and once the cause of anemia is established, as an outpatient we can discuss initiating either warfarin or an alternative novel oral anticoagulant. Thank you very much for the opportunity to participate in her care.
--- NOTE | 2016-09-18 08:47 | PROG NOTE ---
[address] [address] PROGRESS NOTE PATIENT: DAVID MIXON : 1940 MR#: [id number] ADMIT: 09/13/2016 JOB ID: [id number] DATE: 09/18/2016 INFECTIOUS DISEASE FOLLOW UP NOTE: REASON FOR FOLLOWUP: Weakness, weight loss, sweats and pulmonary infiltrates. INTERVAL HISTORY: Recall that yesterday was the day I had originally seen this patient in consult. I found it to be a puzzling case as she did not manifest overt evidence of infection, but she did have persistent leukocytosis as well as a moderately elevated unexplained lipase thought possibly secondary to a passed gallstone. She related this history of night sweats, profound weight loss and fatigue in association with the elevated LFTs. It was also noted that she is now requiring oxygen to keep up her O2 sats and she is a lifelong nonsmoker without any history of lung disease. Her CT abdomen had been fairly normal and yesterday I ordered a CT of his chest and discussed with Dr. Tipton the potential need for an MRI of the brain. These studies have been done overnight. Interval. The patient tells me this morning she continues to have some degree of sweats as well as subjective chills but not bed shaking rigors or violent chills. She has no fever. She states that her headaches are actually better and that she has no sore throat. She has very minimal cough but does note that she is short of breath which for her is something quite new. No GI symptoms at all at this point. She continues to have very severe fatigue. PHYSICAL EXAMINATION: Reveals an afebrile woman. Temperature 37.2. Note that she only had one temperature above 38 and that was 38.1 on the which was the day of admission. Pulse 78, respiratory rate 18, blood pressure 145/74. She is saturating well on 2 L. She is awake, alert, conversational and making jokes. Her eyes without notable abnormality. Oral cavity benign. Lungs posteriorly with a few rales at the bases but fairly unimpressive. Cardiac tones without new murmur. Abdomen soft and nontender today. No skin rashes noted. Neurologically, the patient is intact. LABORATORIES: Include a white count 17,000 two days ago. It has not been repeated and so I have ordered one for this morning. Platelet count 385. Creatinine two days ago, now was 0.73. It has not been repeated. CA-19-9 is normal. Procalcitonin is x2 negative. Urinalysis without white cells. QuantiFERON Gold has been ordered and that is pending. Blood cultures x8 bottles all negative. IMAGING: Yesterday's series of imaging included the chest CT which I reviewed carefully myself. It shows bilateral lower lobe infiltrates with small effusions and some air bronchograms. The radiologist stated they did not think that this represented congestive heart failure. In addition, a MRI scan of the brain was done which was normal. The patient was also seen by Cardiology yesterday. 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 IMPRESSION: This is a very odd case of a woman who presented with very nonspecific symptoms. Because of persistent leukocytosis, there has been concern about infection but we have not yet treated her with any antibiotics as it has been very unclear what the source might be. She relates a couple month history of night sweats, profound weight loss and malaise. She was found to have elevated lipase and there has been concern for possible passage of a gallstone but MRCP has come up negative. At this point, I continue to think we should avoid the use of antibiotics. She does have fairly subtle bilateral infiltrates with some air bronchograms especially on the left, and this could be compatible with pneumonia but the patient has negative procalcitonins on two separate measurements and certainly does not behave as if she is having a bacterial pneumonia. Bacterial endocarditis seems highly unlikely given her negative blood cultures x8 bottles at this point, and indolent pulmonary infections like Mycobacteria, fungus or cryptococcus are certainly a possibility. RECOMMENDATIONS: 1. Repeat CBC and differential today. 2. Cryptococcal antigen will be checked. 3. I note someone has already ordered a QuantiFERON Gold which I think is reasonable. 4. Urine Legionella and pneumococcal antigens will be checked. 5. Respiratory viral panel will be checked. 6. I would consider repeating procalcitonin. 7. No antibiotics for now as we continue to follow this complex patient. I still think the possibility of a GI malignancy exists though we have little evidence for that at this point.
[2016-09-18 09:05] LABS: BASOPHILS % (AUTO) 0.2 % (0-3); EOSINOPHILS % (AUTO) 1.8 % (0-5); MONOCYTES % (AUTO) 6.3 % (4-12); Mean Corpuscular Hemoglobin 28.4 pg (27.0-35.0); Mean Corpuscular Volume 85.8 fL (81-100); NEUTROPHILS % (AUTO) 80.3 % (40-74); Platelet Count 436 bil/L (150-400)
--- NOTE | 2016-09-18 16:13 | PCM.PNMED ---
Subjective Date of Service Sep 18, 2016 Subjective 68-year-old female with unexplained weight loss, episodes of postural hypotension, low-grade fevers presented to her PCP with fever, leukocytosis and elevated lipase without significant abdominal pain. She reports increased energy and feeling well today. Headache of the past 4 days is now gone. No nausea or abdominal complaints. Stools are dark which she attributes to iron supplement. Tolerating food well, but appetite remains reduced. No symptomatic fevers. No recurrence of A. fib RVR since early on 09/17. Review of depression symptoms notable for mild anhedonia, fatigue, reduced appetite, mild hopelessness and increase thoughts about . No psychomotor retardation. No suicidal ideation. She states that symptoms have been stable despite long-term Prozac therapy. On ROS she endorses chronic dry eyes and mouth. No retro-ocular headache. Exam Vital Signs Vital Sign - Last Date Time Temp Pulse Resp B/P Pulse Ox O2 Delivery O2 Flow Rate FiO2 09/18/16 12:32 36.5 78 18 95/56 94 Room Air 09/18/16 08:16 2.00 Intake and Output 09/17/16 09/17/16 09/18/16 Cumulative From/Thru 15:00 23:00 07:00 09/13/16 13:32 - 09/18/16 06:46 Intake Total 1440 ml 300 ml 32866 ml Output Total 950 ml 1200 ml 8822 ml Balance 490 ml -900 ml 4062 ml Intake Oral 1440 ml 300 ml 4515 ml IV Total 8369 ml Output Urine Total 950 ml 1200 ml 8822 ml # Voids 11 # Bowel Movements 3 2 6 Exam General: Generally healthy-appearing elderly woman in no acute distress HEENT: sclerae anicteric, oral mucosa slightly dry Neck: no JVD Chest: clear to auscultation Cardiac: S1S2, no murmur Abdomen: BS normal, non-tender to palpation Extremities: No pitting edema Neuro: A&O, cranial nerves symmetric, moderate tremor right greater than left, reflexes are 3+, motor strength 5/5, coordination normal IVs and Medications Medications Reviewed: Medications were reviewed in detail Lab and Diagnostics Result Diagram: 09/18/16 0850 09/18/16 0850 X-Rays, CTs and MRIs Abdominal CT 1. No definite acute intra-abdominal abnormality. 2. Small sliding hiatal hernia and small bilateral posterior diaphragmatic hernias with a short herniated segment of small bowel on the left. No associated bowel obstruction. 3. 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 Dictated by: Mike Gale M.D. on 09/13/2016 at 15:50 Assessment & Plan 76-year-old female presents due to abnormal blood work with reporting near syncopal episodes, anorexia, intermittent nausea, elevated lipase, A. fib with RVR Paroxysmal A. fib with sick sinus syndrome, active. Telemetry monitoring showed sinus pauses ranging from 3-6 seconds, patient eventually converted to normal sinus rhythm. Diagnosis sick sinus syndrome with A. fib. She needs pacemaker with notable suppression. - No plans for pacemaker placement proceed until her infectious status is clarified - Continue telemetry monitoring Elevated lipase; present on admission; improved. No significant abdominal pain. Low-grade fever and leukocytosis are out of proportion to pancreatic findings. MRCP and ERCP generally unremarkable. Possible isolated gallstone passage but unlikely. No overall pancreatic enlargement. 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 Lipase 584--[id number], and elevated LFTs. - Conservative management followed by outpatient endoscopic ultrasound to rule out malignancy. - Plan outpatient GI follow-up possibly with EUS Anemia of chronic disease; mild present on admission; ongoing. Hemoglobin is 11.0 normocytic. Hypo-proliferative with reic count 0.8%. TIBC and percent saturation are low. Serum iron is low at 19 but ferritin is elevated at 686. - Iron administered but unlikely to help - Likely related to her chronic febrile, leukocytosis, weight loss syndrome Hyponatremia likely secondary to dehydration; present on admission; improving serum sodium 125 on admission. Improved to 128-132. Urine osmolality was 190 with urine sodium consultation 13. Most suggestive of hhypo-euvolemic hyponatremia. No evidence of intrinsic renal disease. No evidence for SIADH. Possibly related to her chronic poor by mouth intake. - Encourage sodium intake, avoid excessive free water hydration Fever, leukocytosis, unintentional weight loss, poa. Approximately 6 month history of constitutional symptoms. Previous episodes of night sweats. CT scan of chest and abdomen have not revealed a neoplastic lesion. Small pleural effusion and basilar atelectasis without evidence of clinical pneumonia or lung cancer. Brain MRI without lesion. Infectious disease consult obtained; no clinical evidence of focal infection. Procalcitonin range 0.26-0.36. Fever range 37.7-38.1. Generally afebrile over the last 24 hours on 09/18/16. 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 Supportive findings include pancreatitis, chronic inflammatory constitutional symptoms, sicca symptoms, and chronic headache (aseptic meningitis). She does not seem to have retro-orbital, intrinsic renal, or retroperitoneal findings. She may benefit from hematology consultation as outpatient. - No antibiotics at this time Resolving, stable and/or chronic problems: Hyperbilirubinemia, active. Fluctuating pattern with range of total bilirubin 1.1-2.1. Mostly unconjugated with direct bilirubin 0.3-0.5. Possibly Gilbert. - No clinical evidence for gallbladder disease - Follow Sepsis secondary to biliary source ; present on admission; ruled out. SIRS criteria of leukocytosis and tachycardia. Tachycardia is primary cardiac. - No apparent gallbladder disease - Pancreas abnormality but not clinical acute pancreatitis Solitary right kidney chronic stable -- Avoid nephro toxic agents Disposition: Plan to discuss infectious status and schedule for pacemaker implantation with consultants. She is otherwise improving and ready for discharge home soon. DNR/DNI, is alternate decision-maker VTE Prophylaxis: Sub-Q Heparin (Unfractionated) VTE Mechanical Devices: Intermittant Pneumatic CD Resuscitation Status: CPR: Attempt Resuscitation Time spent 40 minutes Vaughn Tipton MD Sep 18, 2016 16:13 DNR/DNI, is alternate decision-maker VTE Prophylaxis: Sub-Q Heparin (Unfractionated) VTE Mechanical Devices: Intermittant Pneumatic CD Resuscitation Status: CPR: Attempt Resuscitation Vaughn Tipton MD Sep 18, 2016 16:13
[2016-09-19] VITALS (7 sets, daily range): BP systolic 101–153; BP diastolic 57–72; PULSE 71–94; RESP 15–20; O2SAT 93–98
[2016-09-19] MEDS: Heparin 5,000 Unit/mL Inj SUBQ SCH ×3 (01:06→17:23)
[2016-09-19 06:40] LABS: BASOPHILS % (AUTO) 0.4 % (0-3); EOSINOPHILS % (AUTO) 2.5 % (0-5); MONOCYTES % (AUTO) 8.4 % (4-12); Mean Corpuscular Hemoglobin 28.7 pg (27.0-35.0); Mean Corpuscular Volume 85.8 fL (81-100); NEUTROPHILS % (AUTO) 64.8 % (40-74); Platelet Count 422 bil/L (150-400)
--- NOTE | 2016-09-19 10:10 | PROG NOTE ---
[address] [address] PROGRESS NOTE PATIENT: DAVID MIXON : 1940 MR#: [id number] ADMIT: 09/13/2016 JOB ID: [id number] DATE: 09/19/2016 INFECTIOUS DISEASE FOLLOW UP NOTE: REASON FOR FOLLOWUP: Bilateral infiltrates, night sweats and weight loss of unknown etiology. INTERVAL HISTORY: Overnight, the patient reports she has gradually been feeling better. Last night she had a late night sweat by her description. She had some sweating in her back which extended down to her buttocks but it was much less than th usual drenching sweats she has had over the last few months. She also notes that she is hungry which is a bit unusual for her and is in the middle of having a relatively big breakfast. She denies any fevers, chills or sweats. She still has some pain in her chest with deep inspiration, especially on the left. She has not had any more episodes of near syncope but she has not been up walking much either. No new GI symptoms and no productive cough. PHYSICAL EXAMINATION: Reveals an afebrile woman. Temperature 37.2, pulse 81, respiratory rate 15, blood pressure 124/68. She is saturating well on room air. No apparent distress. She is awake and alert this morning. She has some mild conjunctival pallor. Oral cavity: No thrush or pharyngitis. Lungs: Clear except for a few crackles at the left base only. Cardiac tones are regular today though it is notable she does have paroxysmal atrial fibrillation and I did not appreciate that on auscultation today. Abdomen negative. LABORATORIES: Include a white count which is subtle down to 11,300. The differential is completely normal. She has 422,000 platelets. Creatinine 0.65, magnesium 1.6. Procalcitonin done yesterday is remarkably elevated at 20 which would be 40 times the upper limit of normal. Procalcitonins have been done x4 and they are all around 0.25 and I do not think we should repeat any more of these. This would not be consistent with bacterial pneumonia nor sepsis. Urinalysis without white cells or red cells. Serologic studies that are pending include crypto antigen and QuantiFERON Gold. The urine antigens for Legionella and pneumococcus I ordered yesterday have not been done and I have reordered these today. In terms of microbiology, her respiratory viral PCR panel is negative as are eight bottles on the blood cultures. IMAGING: Studies include the CT scan of the chest which showed bilateral small infiltrates with small pleural effusions which could be consistent with pneumonia or atelectasis. Additionally an MRI scan of the brain has been done which is normal. IMPRESSION: This is a most difficult case of an elderly woman who has sick sinus tachy-reanna syndrome accounting for some of her near syncopal and lightheaded events, but also has a profound weight loss and night sweats. She was found to have elevated lipase when she came in and also complained of a great deal of headache. No explanation has been found for her pancreatitis including evaluation by ERCP. I continue to be unimpressed with her situation with respect to possible infection. We continue to look for sources of infection, in particular, pulmonary infection but the chronic nature of her night sweats, weight loss, and malaise would argue against an acute bacterial process as would her normal white blood cell differential and negative procalcitonins. A mycobacterial or fungal process could, of course, produce these symptoms, but I also find that a bit unlikely. One of the other clinicians has mentioned in his progress notes the possibility of an IgG4 syndrome which is an intriguing possibility. She does have an IgG4 level about double normal as well as the unexplained pancreatitis, headaches, night sweats and pulmonary process and these certainly all could be consistent with the rare IgG4 syndrome. RECOMMENDATIONS: 1. No antibiotics at this time. 2. I have reorder the urine antigens for pneumococcus and Legionella. 3. We await the other pending studies as well as the final report on her blood cultures.
[2016-09-19 10:12] LABS: Cryptococcal Ag Negative (Negative)
--- NOTE | 2016-09-19 10:38 | PROG NOTE ---
[address] [address] PROGRESS NOTE PATIENT: DAVID MIXON : 1940 MR#: [id number] ADMIT: 09/13/2016 JOB ID: [id number] DATE: 09/19/2016 SUBJECTIVE: Patient is feeling brighter today. She is a little bit more energetic. OBJECTIVE: Vital signs: Temperature 37.2, blood pressure 124/68 up to 153/62, pulse 71 up to 81 beats per minute. She had a 20 beat run of VT on telemetry. It was monomorphic. She is satting 94% on room air, well-nourished lady in no apparent distress. Eyes: No scleral icterus. Neck is supple, no carotid bruits. Heart normal S1, S2. No murmurs, rubs, or gallops. Lungs are clear to auscultation anteriorly. Abdomen is soft, positive bowel sounds, no hepatosplenomegaly. Extremities warm and well perfused. No clubbing, cyanosis, or edema. Skin: No rashes or lesions. LABORATORIES: Reviewed. She is anemic. Her hematocrit is 27%. It appears to have fallen somewhat acutely in the past week from 32% on September 13 to 27% now. She has evidence of elevated ferritin, but low percent iron saturation (13%), but low total iron binding capacity at 148. Creatinine is normal. Liver function tests have not been rechecked. Labs and telemetry review: She had a 20 beat run of ventricular tachycardia last night. Echo September 16 was reassuring EF is 60-65%. No focal wall motion abnormalities are seen. She has mild to moderate mitral regurgitation. Otherwise, no significant valvular disease. ASSESSMENT AND PLAN: A 76-year-old woman with syncope, paroxysmal Afib, and 3.3 second pauses. Her dysrhythmia appears to be controlled on warfarin 25 mg by mouth every 6 hours with the exception of a brief run of ventricular tachycardia that was about 20 beats long. She is not a good anticoagulation candidate because of anemia and feeling of unsteadiness on her feet. As a result, she has been on aspirin 325 mg daily until anemia workup is complete. Given ventricular tachycardia and the fact that about 3% of paroxysmal atrial fibrillation is due to ischemia, I recommend ischemic evaluation. If that is reassuring then patient will proceed to dual-chamber permanent pacemaker implant. Since she is doing okay on medical therapy we can send her home on beta-coty and aspirin for stroke prevention and have her admitted for dual-chamber permanent pacemaker implant as an outpatient. Patient agrees with this plan. Tentative implant date is September 24, 2016. In terms of her leukocytosis, anemia, elevated IgG with no obvious GI losses, I would defer workup of these important condition to the primary hospitalist team. I would strongly advise outpatient hematology evaluation with low threshold to do a bone marrow biopsy. Thank you very much for the opportunity to evaluate this patient. ADDITIONAL INFORMATION: I reviewed the patient's stress test. It was a pharmacologic stress test with myocardial perfusion imaging. It showed no evidence of ischemia or prior infarct. Addenda added by DOMINIQUE 09/20/16 at 7:14am
[2016-09-19 11:00] LABS: Bilirubin, Direct 0.2 mg/dL (0.0-0.3)
--- NOTE | 2016-09-19 18:35 | PCM.PNMED ---
Subjective Date of Service Sep 19, 2016 Subjective 68-year-old female with unexplained weight loss, episodes of postural hypotension, low-grade fevers presented to her PCP with fever, leukocytosis and elevated lipase without significant abdominal pain. She reports increased energy and feeling well today. Headache of the past 4 days is now gone. No nausea or abdominal complaints. Stools are dark which she attributes to iron supplement. Tolerating food well, but appetite remains reduced. No symptomatic fevers. No recurrence of A. fib RVR since early on 09/17. Review of depression symptoms notable for mild anhedonia, fatigue, reduced appetite, mild hopelessness and increase thoughts about . No psychomotor retardation. No suicidal ideation. She states that symptoms have been stable despite long-term Prozac therapy. On ROS she endorses chronic dry eyes and mouth. No retro-ocular headache. Exam Vital Signs Vital Sign - Last Date Time Temp Pulse Resp B/P Pulse Ox O2 Delivery O2 Flow Rate FiO2 09/19/16 17:45 Supplement Oxygen 09/19/16 17:22 36.5 78 16 123/63 09/19/16 12:24 93 09/18/16 08:16 2.00 Intake and Output 09/18/16 09/18/16 09/19/16 Cumulative From/Thru 15:00 23:00 07:00 09/13/16 13:32 - 09/19/16 05:09 Intake Total 250 ml 200 ml 27363 ml Output Total 500 ml 9322 ml Balance 250 ml -300 ml 4012 ml Intake Oral 250 ml 200 ml 4965 ml IV Total 8369 ml Output Urine Total 500 ml 9322 ml # Voids 1 12 # Bowel Movements 1 7 Exam General: Generally healthy-appearing elderly woman in no acute distress well- developed, well-nourished, appropriately interactive HEENT: Normocephalic, atraumatic. External ears without defect. Pupils equal, round, and reactive to light and accommodation. Anicteric sclerae, moist conjunctivae, and no lid lag. Oropharynx free of erythema and cobble stoning with moist mucosa. Neck: Supple with full range of motion. No jugular venous distension. No bruits. No lymphadenopathy or thyromegaly. Cardiovascular: Regular rate and rhythm with no murmurs, rubs, or gallops appreciated Pulmonary: Clear to auscultation bilaterally with no crackles, wheezes, or rhonchi. Normal respiratory effort with no use of accessory muscles. Abdomen: Bowel tones present. Soft, nontender, nondistended. No hepatosplenomegaly or masses appreciated. Extremities: No clubbing, cyanosis, edema, or lymphadenopathy appreciated. Skin: Normal temperature, turgor, and texture; no rash, ulcers, or subcutaneous nodules appreciated. Neurological: Cranial nerves grossly intact. Reflexes, coordination, and sensory function within normal limits. No known gait impairment .moderate tremor right greater than left, reflexes are 3+, motor strength 5/5, coordination normal Psychiatric: Normal mood and affect. Alert and oriented to person, place, and time. IVs and Medications Medications Reviewed: Medications were reviewed in detail Lab and Diagnostics Result Diagram: 09/19/1660909/19/16609 X-Rays, CTs and MRIs Abdominal CT 1. No definite acute intra-abdominal abnormality. 2. Small sliding hiatal hernia and small bilateral posterior diaphragmatic hernias with a short herniated segment of small bowel on the left. No associated bowel obstruction. 3. 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 Dictated by: Mike Gale M.D. on 09/13/2016 at 15:50 Assessment & Plan 76-year-old female presents due to abnormal blood work with reporting near syncopal episodes, anorexia, intermittent nausea, elevated lipase, A. fib with RVR Paroxysmal A. fib with sick sinus syndrome, active. Telemetry monitoring showed sinus pauses ranging from 3-6 seconds, patient eventually converted to normal sinus rhythm. Diagnosis sick sinus syndrome with A. fib. She needs pacemaker with notable suppression. - No plans for pacemaker placement proceed until her infectious status is clarified - Continue telemetry monitoring - Stress test pending. If wnl will proceed to dual-chamber permanent pacemaker implant. - home on beta-coty and aspirin for stroke prevention and have her admitted for dual-chamber permanent pacemaker implant as an outpatient. Tentative implant date is September 24, 2016. Elevated lipase; present on admission; Resolved No significant abdominal pain. Low-grade fever and leukocytosis are out of proportion to pancreatic findings. MRCP and ERCP generally unremarkable. Possible isolated gallstone passage but unlikely. No overall pancreatic enlargement. 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 Lipase 584--[id number], and elevated LFTs. 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 - Conservative management followed by outpatient endoscopic ultrasound to rule out malignancy. - Plan outpatient GI follow-up possibly with EUS Anemia of chronic disease; mild present on admission; ongoing. Hemoglobin is 11.0 normocytic. Hypo-proliferative with reic count 0.8%. TIBC and percent saturation are low. Serum iron is low at 19 but ferritin is elevated at 686. - Iron administered but unlikely to help - Likely related to her chronic febrile, leukocytosis, weight loss syndrome Hyponatremia likely secondary to dehydration; present on admission; improving serum sodium 125 on admission. Improved to 128-132. Urine osmolality was 190 with urine sodium consultation 13. Most suggestive of hhypo-euvolemic hyponatremia. No evidence of intrinsic renal disease. No evidence for SIADH. Possibly related to her chronic poor by mouth intake. - Encourage sodium intake, avoid excessive free water hydration Fever, leukocytosis, unintentional weight loss, poa. Approximately 6 month history of constitutional symptoms. Previous episodes of night sweats. CT scan of chest and abdomen have not revealed a neoplastic lesion. Small pleural effusion and basilar atelectasis without evidence of clinical pneumonia or lung cancer. Brain MRI without lesion. Infectious disease consult obtained; no clinical evidence of focal infection. Procalcitonin range 0.26-0.36. Fever range 37.7-38.1. Generally afebrile over the last 24 hours on 09/18/16. 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 Supportive findings include pancreatitis, chronic inflammatory constitutional symptoms, sicca symptoms, and chronic headache (aseptic meningitis). She does not seem to have retro-orbital, intrinsic renal, or retroperitoneal findings. She may benefit from hematology consultation as outpatient. - No antibiotics at this time Depression, present on admission. Active. - Patient is expressing depressed feelings and will need outpatient follow up. Resolving, stable and/or chronic problems: Hyperbilirubinemia, active. Fluctuating pattern with range of total bilirubin 1.1-2.1. Mostly unconjugated with direct bilirubin 0.3-0.5. Possibly Gilbert. - No clinical evidence for gallbladder disease - Follow Sepsis secondary to biliary source ; present on admission; ruled out. SIRS criteria of leukocytosis and tachycardia. Tachycardia is primary cardiac. - No apparent gallbladder disease - Pancreas abnormality but not clinical acute pancreatitis Solitary right kidney chronic stable - Avoid nephro toxic agents Social: Tentative implant date is September 24, 2016. Disposition: Plan to discuss infectious status and schedule for pacemaker implantation with consultants. She is otherwise improving and ready for discharge home soon. DNR/DNI, is alternate decision-maker VTE Prophylaxis: Sub-Q Heparin (Unfractionated) VTE Mechanical Devices: Intermittant Pneumatic CD Resuscitation Status: CPR: Attempt Resuscitation Attending Statement The patient was seen and examined together with on 09/20/2016 and I agree with the history, exam findings, and plan as outlined in the note above. I did participate in all aspects of the services provided today, including documentation and the plan of care. Patient was seen with the resident. Her leukocytosis and elevated CRP remain unclear in terms of etiology. Have discussed her potential discharge home with infectious disease and they are going to consider any other studies of the right prior to her discharge. She will defer consideration of pacemaker implantation to an outpatient basis. She was noted to have pauses in context of her paroxysmal atrial fibrillation. SATINDER CRUZ DO Sep 19, 2016 18:33 Deion Grimes MD Sep 22, 2016 07:45
[2016-09-20 00:15] VITALS: BP 109/66; PULSE 75; RESP 18; O2SAT 98
[2016-09-20] MEDS: Heparin 5,000 Unit/mL Inj SUBQ SCH ×2 (00:22→08:20)
[2016-09-20 04:00] VITALS: BP 116/64; PULSE 83; RESP 16; O2SAT 96
[2016-09-20 04:46] VITALS: PULSE 75
[2016-09-20 08:00] VITALS: PULSE 73
[2016-09-20 08:13] VITALS: BP 123/76; PULSE 76; RESP 16; O2SAT 96
[2016-09-20] MEDS ORDERED: METO25TA6 PO (10:51)
--- NOTE | 2016-09-20 10:53 | PCM.DIMED ---
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 fib with sick sinus syndrome Elevated lipase Anemia of chronic disease Hyponatremia likely secondary to dehydration Fever, leukocytosis, unintentional weight loss Depression Pulmonary infiltrates Resolving, stable and/or chronic problems: Hyperbilirubinemia Sepsis secondary to biliary source Solitary right kidney chronic stable Test Results Test Results Normal Stress test. IGG4 is elevated. CRP is elevated. Diet Discharge Diet: Heart Healthy Activity Discharge Activity: No restrictions Patient Instructions Follow-up plan Appointment for pacemaker placement with Dr. Barrera September 24, Then follow up with cardiology as directed by cardiology. Follow-up Provider: Rudy Quesada MD Follow-up with PCP in: 2 weeks Provider: Sorin Herrera MD Follow-up in: 2 weeks (possible IGG4 syndrome) Mid-level Provider (F9): Rubén Youssef MD Follow-up with Mid-level in: 3 weeks (Hematology follow up for anemia) Deion Grimes MD 09/22/16 0751: Discharge Instructions Attending's Statement The patient was seen and examined together with on 09/20/2016 and I agree with the history, exam findings, and plan as outlined in the note above. I did participate in all aspects of the services provided today, including documentation and the plan of care. The patient be discharged home with follow-up with cardiology for consideration of pacemaker and ongoing evaluation of her weight loss and elevated CRP SATINDER CRUZ DO Sep 20, 2016 10:37 Deion Grimes MD Sep 22, 2016 07:51
--- NOTE | 2016-09-20 12:26 | PROG NOTE ---
[address] [address] PROGRESS NOTE PATIENT: DAVID MIXON : 1940 MR#: [id number] ADMIT: 09/13/2016 JOB ID: [id number] DATE: 09/20/2016 INFECTIOUS DISEASE FOLLOWUP NOTE: REASON FOR FOLLOWUP: Complex multisystem disorder. INTERVAL HISTORY: Overnight the patient has been free of fevers, chills, or sweats. Note that she was complaining of drenching night sweats for months prior to admission but during her eight days here in the hospital she has only had one night sweat. She continues to have intermittent headaches. No sore throat. No nausea, vomiting, or diarrhea. She does not have abdominal pain. PHYSICAL EXAMINATION: Reveals an afebrile woman temperature 36.8, pulse 76, respiratory rate 16, blood pressure 123/76. She is saturating well on room air and in no distress. She is anxious to go home. Examination of mental status reveals it to be normal. The oral cavity without thrush or pharyngitis. The lungs quite clear posteriorly while the patient is sitting up, inspiring deeply. Cardiac tones without murmur. Abdomen benign. No skin rash. LABORATORIES: Include a white count yesterday 11,000, not repeated today. Creatinine is 0.65. LFTs continue to be slightly elevated at AST 67, ALT 57. BNP was 8668 but the echo showed relatively good left ventricular function. The patient's lipase was grossly elevated as high as 840 when she came in, it was 78 when last checked a few days ago. Recall that her IgG4 was elevated to about two times normal. The other immunoglobulin subclasses were normal. Micro studies include negative blood cultures x8 bottles and a negative nasopharyngeal PCR. The CT was again reviewed, and I reviewed it with the patient and her . It shows bilateral lower lobe infiltrates with effusions and some air bronchograms on the left. This could be compatible of course with pneumonia or potentially fluid overload or some other inflammatory process. Brain MRI was normal. MRCP normal. IMPRESSION: This is an extremely complicated case which has been evaluated by multiple different disciplines. From my perspective I see no evidence for ongoing infection requiring any antibiotic therapy. 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 In addition she has had evidence of pancreatitis which was not explained by any pathology demonstrable on an MRCP. Additionally she has an elevated IgG4 which can be associated with a host of processes including sometimes pancreatitis. The patient has had considerable weight loss which has stabilized at this point, as well as drenching night sweats which also seem to be spontaneously stabilizing. 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 RECOMMENDATIONS: 1. No antibiotics at this time. 2. The patient can be discharged today and I have discussed this case in detail with Dr. Deion Grimes, who is planning to send her home. 3. I would like to see the patient in clinic on October 09 to follow up on some serologic studies which are still pending, as well as to repeat a CRP and see how she is doing from an inflammatory point of view. 4. 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 5. ID will sign off at this time but thank you very much for involving me in this case. 6. I spent considerable time this morning going over the laboratories as well as the radiographs with the patient and her . Thank you very much.
[2016-09-20 12:31] LABS: APPEARANCE,URINE CLEAR (CLEAR,HAZY); COLOR,URINE YELLOW (YELLOW); OCCULT BLOOD,URINE SMALL (NEGATIVE)
--- NOTE | 2016-09-20 14:41 | DRSVH ---
Caution: Report not yet finalized and possibly incomplete! PROCEDURE: ONE DAY PHARMACOLOGICAL STRESS TEST. Rest and pharmacological stress myocardial perfusio n SPECT with gated imaging and ejection fraction RADIOPHARMACEUTICAL: 7.8 mCi Tc-99m tetrofosmin IV at rest and 25.1 mCi Tc-99m tetrofosmin IV at pea k effect of pharmacological stress. A [id number] was performed. INDICATIONS: Paroxysmal atrial fibrillation and ventricular tachycardia. TECHNIQUE: Radiopharmaceutical was injected at peak stress test and also at rest. SPECT images were obtained. SPECT myocardial perfusion images were displayed in short axis, horizontal long axis, and vertical long axis views. Gated images were reviewed using [employer] software. COMPARISON: None. CARDIAC STRESS: A pharmacologic stress test was performed under the supervision of attending staff, using an infusion of Lexiscan. Hemodynamic Data: There is normal blood pressure and heart rate response to pharmacologic stress. Symptoms: The patient denied anginal chest pain. Aminophylline: 100 mgs. EKG: No diagnostic changes of ischemia; no ectopy. FINDINGS: Raw Data: There is good myocardial uptake of radiotracer. There is no significant motion artifact. Left Ventricular Function: Gated images demonstrate normal left ventricular wall thickening. No seg mental wall motion abnormalities. No transient ischemic dilation visually. Left ventricular resting end diastolic volume is 58 mL. Left ventricular stress ejection fraction is 88%; normal range is abo ve 45%. Myocardial Perfusion: There is normal distribution of activity in the right and left ventricular leopoldo cardium. A small apical defect normalizes with prone imaging. No fixed or reversible perfusion defe cts. IMPRESSION: 1. No diagnostic ST-T changes. 2. No areas of ischemia are identified. 3. Normal ejection fraction. Dictated by: Aubrey Augustin M.D. on 09/20/2016 at 13:26 Transcribed by: MYNOR on 09/20/2016 at 17:41
--- NOTE | 2016-09-20 15:51 | PCM.DC.MED ---
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 fib with sick sinus syndrome Elevated lipase Anemia of chronic disease Hyponatremia likely secondary to dehydration Fever, leukocytosis, unintentional weight loss Depression Pulmonary infiltrates Resolving, stable and/or chronic problems: Hyperbilirubinemia Sepsis secondary to biliary source Solitary right kidney chronic stable Procedures XRay, CTs & MRIs Abdominal CT 1. No definite acute intra-abdominal abnormality. 2. Small sliding hiatal hernia and small bilateral posterior diaphragmatic hernias with a short herniated segment of small bowel on the left. No associated bowel obstruction. 3. 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 Dictated by: Mike Gale M.D. on 09/13/2016 at 15:50 Brief History 68-year-old female with unexplained weight loss, episodes of postural hypotension, low-grade fevers presented to her PCP with fever, leukocytosis and elevated lipase without significant abdominal pain. Her symptomatic presentation and abnormal lab values are quite puzzling. We have no evidence at this time to believe her elevated lipase was 2nd to a stone, however it is possible the stone passed before MRCP. Her CRP was greatly elevated to 19.9. as well as her ferritin of 686. She remained anemic at 9.1 throughout her hospital stay. We have completely worked up infectious etiology and have no evidence that her fevers or other symptoms were due to an infection of some sort. At this point there is evidence that some of her symptoms may be 2nd to IGG4 related syndrome with an elevation of 172, normal values 2-96. She underwent a NM stress test with completely normal results. However she does have sick sinus syndrome and has a follow up appointment on the for ablation and pacemaker placement. She was discharged medically stable with recommendations to follow up with GI, Hematology, Cardiology and primary care physician related to recent hospital admission, weight loss, IGG4, anemia, and depression. Hospital Course 76-year-old female presents due to abnormal blood work with reporting near syncopal episodes, anorexia, intermittent nausea, elevated lipase, A. fib with RVR Paroxysmal A. fib with sick sinus syndrome, active. - home on beta-coty and aspirin for stroke prevention and have her admitted for dual-chamber permanent pacemaker implant as an outpatient. Tentative implant date is September 24, 2016. Elevated lipase; present on admission; Resolved - No significant abdominal pain. Low-grade fever and leukocytosis are out of proportion to pancreatic findings. MRCP and ERCP generally unremarkable. Possible isolated gallstone passage but unlikely. No overall pancreatic enlargement. 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 Lipase 584--[id number], and elevated LFTs. 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 - Conservative management followed by outpatient endoscopic ultrasound to rule out malignancy. - Plan outpatient GI follow-up possibly with EUS Anemia of chronic disease; mild present on admission; ongoing. Hemoglobin is 11.0 normocytic. Hypo-proliferative with reic count 0.8%. TIBC and percent saturation are low. Serum iron is low at 19 but ferritin is elevated at 686. - Iron administered but unlikely to help - Likely related to her chronic febrile, leukocytosis, weight loss syndrome - Outpatient Hematology followup, with possible bone marrow biopsy. Hyponatremia likely secondary to dehydration; present on admission; improving serum sodium 125 on admission. Improved to 128-132. Urine osmolality was 190 with urine sodium consultation 13. Most suggestive of hhypo-euvolemic hyponatremia. No evidence of intrinsic renal disease. No evidence for SIADH. Possibly related to her chronic poor by mouth intake. - Encourage sodium intake, avoid excessive free water hydration Fever, leukocytosis, unintentional weight loss, poa. Approximately 6 month history of constitutional symptoms. Previous episodes of night sweats. CT scan of chest and abdomen have not revealed a neoplastic lesion. Small pleural effusion and basilar atelectasis without evidence of clinical pneumonia or lung cancer. Brain MRI without lesion. Infectious disease consult obtained; no clinical evidence of focal infection. Procalcitonin range 0.26-0.36. Fever range 37.7-38.1. Generally afebrile over the last 24 hours on 09/18/16. 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 Supportive findings include pancreatitis, chronic inflammatory constitutional symptoms, sicca symptoms, and chronic headache (aseptic meningitis). She does not seem to have retro-orbital, intrinsic renal, or retroperitoneal findings. She may benefit from hematology consultation as outpatient. - No antibiotics at this time Depression, present on admission. Active. - Patient is expressing depressed feelings and will need outpatient follow up. Resolving, stable and/or chronic problems: Hyperbilirubinemia, active. Sepsis secondary to biliary source ; present on admission; ruled out. SIRS criteria of leukocytosis and tachycardia. Tachycardia is primary cardiac. Solitary right kidney chronic stable Exam Vital Signs (Last) Date Time Temp Pulse Resp B/P Pulse Ox O2 Delivery O2 Flow Rate FiO2 09/20/16 08:13 36.8 76 16 123/76 96 Room Air 09/18/16 08:16 2.00 Exam General: Generally healthy-appearing elderly woman in no acute distress well- developed, well-nourished, appropriately interactive HEENT: Normocephalic, atraumatic. External ears without defect. Pupils equal, round, and reactive to light and accommodation. Anicteric sclerae, moist conjunctivae, and no lid lag. Oropharynx free of erythema and cobble stoning with moist mucosa. Neck: Supple with full range of motion. No jugular venous distension. No bruits. No lymphadenopathy or thyromegaly. Cardiovascular: Regular rate and rhythm with no murmurs, rubs, or gallops appreciated Pulmonary: Clear to auscultation bilaterally with no crackles, wheezes, or rhonchi. Normal respiratory effort with no use of accessory muscles. Abdomen: Bowel tones present. Soft, nontender, nondistended. No hepatosplenomegaly or masses appreciated. Extremities: No clubbing, cyanosis, edema, or lymphadenopathy appreciated. Skin: Normal temperature, turgor, and texture; no rash, ulcers, or subcutaneous nodules appreciated. Neurological: Cranial nerves grossly intact. Reflexes, coordination, and sensory function within normal limits. No known gait impairment .moderate tremor right greater than left, reflexes are 3+, motor strength 5/5, coordination normal Psychiatric: Normal mood and affect. Alert and oriented to person, place, and time. Test 09/13/16 13:27 09/13/16 15:54 09/13/16 18:46 09/14/16 04:30 Thyroid Stimulating Hormone (TSH) 1.570uIU/mL (0.450-4.500) Cortisol 19.5ug/dL (.) Urine Osmolality 190mOs/kH2O (250-1200) Hold Urine Received (Received) Urine Random Sodium 13mEq/L Reticulocyte Count,Calculated 0.8% (0.6-2.6) Prothrombin Time 11.7sec (8.1-12.5) Prothromb Time International Ratio 1.09ratio Hemoglobin A1c 6.2% (4.8-5.6) Osmolality 273 (275-300) Lactic Acid Level 0.7mmol/L (0.4-2.0) Phosphorus Level 2.1mg/dL (2.5-4.9) Iron Level 19ug/dL (35-150) Total Iron Binding Capacity 148ug/dL (250-450) Percent Iron Saturation 13%sat (15-50) Unsaturated Iron Binding 128.9ug/dL Ferritin 686ng/mL (13-150) Triglycerides Level 65mg/dL (0-149) Cholesterol Level 93mg/dL (100-199) LDL Cholesterol, Calculated 58.000mg/dL (0-99) VLDL Cholesterol 13.000mg/dL HDL Cholesterol 22mg/dL (>39) Cholesterol/HDL Ratio 4.23 (0.0-4.4) Amylase Level 450U/L (28-100) Anti-Nuclear Antibody Screen Negative (Negative) Tissue Transglutaminase IgG Ab <2U/mL (0-5) Tissue Transglutaminase IgA Ab <2U/mL (0-3) Test 09/14/16 22:32 09/15/16 11:50 09/15/16 13:15 09/16/16 05:03 Vitamin B12 Level >1999pg/mL (211-946) Folate > 19.9ng/mL (>3.0) Immunoglobulin G Total 1304mg/dL (700-1600) Immunoglobulin G1 778mg/dL (248-810) Immunoglobulin G2 445mg/dL (130-555) Immunoglobulin G3 48mg/dL (15-102) Immunoglobulin G4 172mg/dL (2-96) Total Creatine Kinase 192U/L (21-215) Creatine Kinase MB 3.3ng/mL (0.0-5.3) Creatine Kinase MB % % (0.0-5.0) Pro-B-Type Natriuretic Peptide 8668pg/mL (0-738) Lipase 78U/L (13-60) Test 09/16/16 13:30 09/17/16 04:00 09/17/16 09:30 09/18/16 08:50 CA 19-9 Antigen 18U/mL (0-35) Procalcitonin 0.25ng/mL (0.00-0.08) Hold Cole Top Tube Received (Received) C-Reactive Protein 19.9mg/dL (0.0-0.5) Cryptococcus Antigen Negative (Negative) Test 09/19/16 06:10 09/20/16 11:41 09/20/16 11:45 White Blood Count 11.3th/mm3 (3.8-10.1) Red Blood Count 3.17mil/mm3 (3.90-5.20) Hemoglobin 9.1g/dL (12.0-15.6) Hematocrit 27.2% (35.0-46.0) Mean Corpuscular Volume 85.8fL (81-100) Mean Corpuscular Hemoglobin 28.7pg (27.0-35.0) Mean Corpuscular Hemoglobin Concent 33.5% (32.0-37.0) Red Cell Distribution Width 13.2% (12.3-15.4) Platelet Count 422bil/L (150-400) Neutrophils (%) (Auto) 64.8% (40-74) Lymphocytes (%) (Auto) 23.2% (14-46) Monocytes (%) (Auto) 8.4% (4-12) Eosinophils (%) (Auto) 2.5% (0-5) Basophils (%) (Auto) 0.4% (0-3) Sodium Level 134mEq/L (134-144) Potassium Level 3.8mEq/L (3.5-5.2) Chloride Level 98mEq/L (97-108) Carbon Dioxide Level 23mmol/L (18-29) Blood Urea Nitrogen 9mg/dL (8-27) Creatinine 0.65mg/dL (0.57-1.00) Estimat Glomerular Filtration Rate 126mL/min (>59) Glucose Level 98mg/dL (60-99) Calcium Level 8.7mg/dL (8.5-10.1) Magnesium Level 1.6mg/dL (1.6-2.6) Total Bilirubin 0.7mg/dL (0.0-1.2) Direct Bilirubin 0.2mg/dL (0.0-0.3) Aspartate Amino Transf (AST/SGOT) 67U/L (0-50) Alanine Aminotransferase (ALT/SGPT) 57U/L (0-32) Alkaline Phosphatase 161U/L (25-165) Troponin T < 0.010ug/L (0.0-0.011) Total Protein 6.8g/dL (6.4-8.4) Albumin 2.2g/dL (3.4-5.0) Urine Legionella pneumophilia Ag Negative (Negative) Urine Color Yellow (YELLOW) Urine Appearance Clear (CLEAR,HAZY) Urine pH 6.0 (5.0-8.0) Urine Specific [place] 1.005 (1.003-1.035) Urine Protein Negativemg/dL (NEG,TRACE) Urine Glucose (UA) Negativemg/dL (NEGATIVE) Urine Ketones Negativemg/dL (NEGATIVE) Urine Occult Blood Small (NEGATIVE) Urine Nitrite Negative (NEGATIVE) Urine Bilirubin Negative (NEGATIVE) Urine Urobilinogen 2.0mg/dL (NORMAL) Urine Leukocyte Esterase Negative (NEGATIVE) Urine RBC 3-10/hpf (0-2) Urine WBC 0-5/hpf (0-5) Urine Epithelial Cells Occasional/hpf (NONE-MOD) Urine Crystals None seen (NONE SEEN) Urine Bacteria Few/hpf (NONE-FEW) Urine Hyaline Casts None/lpf (NONE) Urine Granular Casts None seen (NONE SEEN) Urine Waxy Casts None seen (NONE SEEN) Urine Red Blood Cell Casts None seen (NONE SEEN) Urine White Blood Cell Casts None seen (NONE SEEN) Urine Mucus None seen (None Seen) Urine Trichomonas None seen (NONE SEEN) Urine Yeast None (NONE SEEN) Urinalysis Comment None Urine Culture Reflexed Not indicated Discharge Medications Discharge Medications Aspirin (Aspirin) 81 Mg Tablet 81 MG PO DAILY (Reported) Atorvastatin (Lipitor) 10 Mg Tab 10 MG PO HS (Reported) Calcium Citrate/Vitamin D3 (Calcium Citrate-Vit D3 Tablet) 1 Each Tablet 1 EACH PO DAILY (Reported) Cetirizine HCl (Zyrtec) 10 Mg Capsule 10 MG PO DAILY (Reported) Cyanocobalamin/Folic Acid (Vitamin F04-[place] Acid Tablet) 1 Each Tablet 1 EACH PO DAILY (Reported) Fluoxetine (Fluoxetine) 20 Mg Capsule 20 MG PO DAILY (Reported) Fluticasone Propionate (Fluticasone Propionate Nasal) 16 Gm [place].susp 1 SPRAY NS BID (Reported) Metoprolol Tartrate (Metoprolol Tartrate) 25 Mg Tablet 50 MG PO BID Prescribed by: SATINDER CRUZ DO Multivitamin (Multi Vitamin Daily) 1 Each Tablet 1 EACH PO DAILY (Reported) Ranitidine (Ranitidine) 150 Mg Capsule 150 MG PO BID (Reported) Followup Plan Disposition: home Follow-up plan Appointment for pacemaker placement with Dr. Barrera September 24, Then follow up with cardiology as directed by cardiology. Discharge Diet: Heart Healthy Discharge Activity: No restrictions Patient Instructions Follow up with Dr. Barrera September 24 for treatment of sick sinus syndrome with permanent pacemaker placement. 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 Cruz on September 20 and I agree with the history, exam findings, and plan as outlined in the note above. I did participate in all aspects of the services provided today, including documentation and the plan of care. The patient will be discharged on the current medications. She will have coronary to follow up with cardiology. She will have a delayed placement of a pacemaker for her witnessed pauses while in the hospital. SATINDER CRUZ DO Sep 20, 2016 15:50 Deion Grimes MD Sep 21, 2016 16:59
== END 2016-09-20 12:51 | disposition home or self-care (01) | DRG 814 ==
LOC: SED 13:27 → OSC 17:36 → PCC 09-16 13:45
PROVIDERS: ADMIT Family Medicine; ATTEND Family Medicine
DX: D80.3 Selective deficiency of immunoglobulin G [IgG] subclasses (principal); K85.10 Biliary acute pancreatitis without necrosis or infection; E43 Unspecified severe protein-calorie malnutrition; R65.11 Systemic inflammatory response syndrome (SIRS) of non-infectious origin with acute organ dysfunction; E87.1 Hypo-osmolality and hyponatremia; J90 Pleural effusion, not elsewhere classified; I48.92 Unspecified atrial flutter; Q60.0 Renal agenesis, unilateral; E80.6 Other disorders of bilirubin metabolism; I49.5 Sick sinus syndrome; E86.0 Dehydration; Z68.24 Body mass index [BMI] 24.0-24.9, adult; Z66 Do not resuscitate; D63.8 Anemia in other chronic diseases classified elsewhere; I48.0 Paroxysmal atrial fibrillation

== ENCOUNTER 2016-09-28 10:22 | Emergency (ER) | payer MEDICARE ==
[~2016-09-28] VITALS: Ht 157.5 cm; Wt 55.9 kg
[~2016-09-28 10:22] MED LIST changes: -ATEN25TA PO; +ATRV10T PO; -CITRUCEL PO; -DIAZ5TAB3 PO; -LOSA100T29 PO; -MECL-114 PO; +METO25TA6 PO; -OMEP20CA11 PO; +RANI150C4 PO; -TRAM50TA2 PO
[2016-09-28 10:30] VITALS: BP 102/44; PULSE 72; RESP 12; O2SAT 96
--- NOTE | 2016-09-28 10:47 | ED.REPORT ---
HPI-General Illness Date of Service Sep 28, 2016 ED Provider: Beni Pérez MD Pt is a 76 year old female who presents to the ED with concerns for "not feeling right at home" since she was discharged from the hospital one week ago. She reports feeling globally weak and fatigued, as well as a return of her cough yesterday. Pt was discharged from the hospital with no definitive diagnosis. She reports that she has been having cramping in her legs, making ambulating difficult. She reports that she has not seen her PCP since she was discharged from the hospital, but she has an appointment on Friday. She reports a mildly productive cough, shortness of breath - not worsened with exertion, a typical headache, and since resolved nausea, but denies any chest pain - but admits to chest "heaviness", fevers, vomiting, diarrhea, abdominal pain, swelling in her lower extremities, rash, or change in urination. Nursing Notes Stated Complaint: HEART PROBLEM Chief Complaint: Dysrhythmia/Cardiac Nursing Notes Reviewed: Yes Allergies: Coded Allergies: Penicillins (Verified Allergy, Severe, itchy rash, 09/28/16) Sulfa (Sulfonamide Antibiotics) (Verified Allergy, Unknown, RASH, 09/28/16) hydrocodone (Verified Adverse Reaction, Severe, N/V, 09/28/16) Cat Dander (Verified Adverse Reaction, Intermediate, nasal plug up, ) oxycodone (Verified Adverse Reaction, Intermediate, n/v, 09/28/16) Scheduled Aspirin (Aspirin) 81 Mg Tablet 81 MG PO DAILY Atorvastatin (Lipitor) 10 Mg Tab 10 MG PO HS Calcium Citrate/Vitamin D3 (Calcium Citrate-Vit D3 Tablet) 1 Each Tablet 1 EACH PO DAILY Cetirizine HCl (Zyrtec) 10 Mg Capsule 10 MG PO DAILY Cyanocobalamin/Folic Acid (Vitamin I84-Idqqp Acid Tablet) 1 Each Tablet 1 EACH PO DAILY Fluoxetine (Fluoxetine) 20 Mg Capsule 20 MG PO DAILY Fluticasone Propionate (Fluticasone Propionate Nasal) 16 Gm [place].susp 1 SPRAY NS BID Metoprolol Tartrate (Metoprolol Tartrate) 25 Mg Tablet 50 MG PO BID Multivitamin (Multi Vitamin Daily) 1 Each Tablet 1 EACH PO DAILY Ranitidine (Ranitidine) 150 Mg Capsule 150 MG PO BID General Time Seen by MD: 10:37 Chief Complaint Not feeling well Hx Obtained From: Patient, Spouse Arrived By: Walk-in Sudden in Onset?: No Symptom Duration: Intermittent Severity: Current: Mild Severity: Maximum: Mild Similar Sx Previous: Yes Past Medical History Past Medical History Shoulder pain Anxiety Torn meniscus- March, Benign paroxysmal positional vertigo Reports: GERD, Hyperlipidemia Reports: Depression, Diverticulitis Past Surgical History Colonoscopy revealed few diverticula sigmoid colectomy oophorectomy hemorrhoidectomy Reports: Appendectomy Smoking History Never Smoker Social History Patient goes to the gym twice weekly Alcohol Use: Denies alcohol use Other Social History: Good social support, , Local resident Ambulatory Status Independent Review of Systems Full Review of Systems Constitutional: Reports: Fatigue, Malaise, Weakness - generalized, Denies: Chills, Fever Respiratory: Reports: Non-productive cough, Shortness of breath, Denies: Wheezing Cardiovascular: Denies: Chest pain, Syncope GI: Reports: Nausea, Denies: Abdominal pain, Constipation, Vomiting Female: Denies: Dysuria, Urinary frequency, Urinary urgency Musculoskeletal: Denies: Back pain, Extremity pain, Neck pain Skin: Denies Diaphoresis, Denies Rash Neurologic: Reports: Headache, Weakness, Denies: Confusion, Dizziness Complete sys rev & neg: except as marked. Physical Exam Vital Signs Vital Signs Date Time Temp Pulse Resp B/P Pulse Ox O2 Delivery O2 Flow Rate FiO2 09/28/16 11:58 64 18 115/44 95 Room Air 09/28/16 11:28 63 11 110/49 95 Room Air 09/28/16 11:28 68 14 96/56 98 Room Air 09/28/16 10:50 67 15 113/51 09/28/16 10:30 37 72 12 102/44 96 Room Air Initial VS: Reviewed Head / Eyes: Atraumatic, Normocephalic, PERRL ENT: Mucous membranes moist, Conjunctiva normal, No scleral icterus Neck: Supple, Non-tender, Full range of motion Respiratory: Breath sounds normal, Clear to auscultation, No respiratory distress Cardiovascular: Regular rate & rhythm, Heart sounds normal, Intact distal pulses Abdomen / GI: Soft, Non-tender, No guarding, No rebound, No distention Skin: Warm, Dry, No cyanosis Neurologic: Alert, Oriented, Nonfocal General/Constitutional: Awake, Alert Fatigued Interpretation & Diagnostics Lab Results Interpretation Result Diagram: 09/28/16 1040 09/28/16 1040 Test 09/28/16 10:40 09/28/16 11:30 White Blood Count 13.3th/mm3 (3.8-10.1) Red Blood Count 3.42mil/mm3 (3.90-5.20) Hemoglobin 9.8g/dL (12.0-15.6) Hematocrit 28.9% (35.0-46.0) Mean Corpuscular Volume 84.5fL (81-100) Mean Corpuscular Hemoglobin 28.7pg (27.0-35.0) Mean Corpuscular Hemoglobin Concent 33.9% (32.0-37.0) Red Cell Distribution Width 13.8% (12.3-15.4) Platelet Count 493bil/L (150-400) Neutrophils (%) (Auto) 75.5% (40-74) Lymphocytes (%) (Auto) 12.1% (14-46) Monocytes (%) (Auto) 9.8% (4-12) Eosinophils (%) (Auto) 1.7% (0-5) Basophils (%) (Auto) 0.4% (0-3) Sodium Level 130mEq/L (134-144) Potassium Level 4.1mEq/L (3.5-5.2) Chloride Level 93mEq/L (97-108) Carbon Dioxide Level 21mmol/L (18-29) Blood Urea Nitrogen 14mg/dL (8-27) Creatinine 0.74mg/dL (0.57-1.00) Estimat Glomerular Filtration Rate 109mL/min (>59) Glucose Level 108mg/dL (60-99) Calcium Level 9.3mg/dL (8.5-10.1) Magnesium Level 1.7mg/dL (1.6-2.6) Total Bilirubin 0.8mg/dL (0.0-1.2) Aspartate Amino Transf (AST/SGOT) 52U/L (0-50) Alanine Aminotransferase (ALT/SGPT) 47U/L (0-32) Alkaline Phosphatase 164U/L (25-165) Troponin T 0.010ug/L (0.0-0.011) Total Protein 7.8g/dL (6.4-8.4) Albumin 3.3g/dL (3.4-5.0) Lipase 119U/L (13-60) Urine Color Straw (YELLOW) Urine Appearance Clear (CLEAR,HAZY) Urine pH 7.0 (5.0-8.0) Urine Specific [place] 1.010 (1.003-1.035) Urine Protein 30mg/dL (NEG,TRACE) Urine Glucose (UA) Negativemg/dL (NEGATIVE) Urine Ketones Negativemg/dL (NEGATIVE) Urine Occult Blood Moderate (NEGATIVE) Urine Nitrite Negative (NEGATIVE) Urine Bilirubin Negative (NEGATIVE) Urine Urobilinogen Normalmg/dL (NORMAL) Urine Leukocyte Esterase Negative (NEGATIVE) Urine RBC 3-10/hpf (0-2) Urine WBC 0-5/hpf (0-5) Urine Epithelial Cells Occasional/hpf (NONE-MOD) Urine Crystals None seen (NONE SEEN) Urine Bacteria None/hpf (NONE-FEW) Urine Hyaline Casts None/lpf (NONE) Urine Granular Casts None seen (NONE SEEN) Urine Waxy Casts None seen (NONE SEEN) Urine Red Blood Cell Casts None seen (NONE SEEN) Urine White Blood Cell Casts None seen (NONE SEEN) Urine Mucus None seen (None Seen) Urine Trichomonas None seen (NONE SEEN) Urine Yeast None (NONE SEEN) Urinalysis Comment None Urine Culture Reflexed Not indicated Lab Results Interpretation: MRCP normal on 09/13/2016 ECG Interpretation ECG Interpretation: SR - 68 Time: 10:34 Normal ECG Interpretation: Normal axis, Normal intervals X-Ray Chest Interpretation Chest Xray Interpretation: IMPRESSION: No radiographic evidence of acute cardiopulmonary pathology. Right pleural effusion has resolved. Dictated by: Roderick Stephens M.D. on 09/28/2016 at 10:58 Interpretation / Wet Read by: Interpret - Radiologist Re-Eval/Medical Decision Med Decision/Clinical Course I had a very, very lengthy discussion with Ms. Vidal and her . They expressed repeated concerned about the unknown nature of the symptoms which she is experiencing. I reassured her and him that I saw no evidence of any immediate problem that required intervention today. I do not believe that hospitalization is required. Laboratory abnormalities discovered today are commensurate with laboratory data seen during the hospitalization a week ago. It seems an appropriate workup has taken place while in the hospital and there have been no new or worrisome symptoms in the interim. I believe that follow- up which is already arranged with Dr. alvarado in 48 hours is sufficient to continue evaluating the problem she is currently experiencing. Source of Hx: Old records Time of Eval: 12:41 Re-Evaluation/Progress Note: Pt is rechecked and informed of her lab results and the plan to discharge her at this time. She understands and agrees, all questions are addressed. Counseled Regarding: Diagnosis, Lab results, Need for follow-up, When/why to return to ED Discharge & Departure Primary Impression: Fatigue Fatigue type: unspecified Qualified Code: R53.83 - Other fatigue Additional Impressions: Serum lipase elevation Transaminase or LDH elevation Leukocytosis Leukocytosis type: other Qualified Code: D72.828 - Other elevated white blood cell count Disposition: Home Discharge Condition All VS Reviewed: Yes Condition: Stable Additional Instructions: No dangerous cause for the symptoms you are experiencing was discovered today. There are a number of chronic laboratory abnormalities that were similarly abnormal during your hospital stay a week ago. I recommend copious oral hydration and as much activity as you can tolerate. Follow-up with Dr. Quesada as planned on Friday. Call the office right away if you are experiencing any new or worrisome symptoms. Referrals: Rudy Quesada MD (PCP) Alicia Attestation Portions of this note were transcribed by Hien Shane. I, Dr. Pérez personally performed the history, physical exam and medical decision-making; I reviewed and confirmed the accuracy of the information in the transcribed note. Signed by: Alicia Mcgee, 09/28/2016 [Time]. copies to: Rudy Quesada MD, Kirk H MD Sep 28, 2016 10:47 TORRES SHANE Sep 28, 2016 10:47
[2016-09-28 10:50] VITALS: BP 113/51; PULSE 67; RESP 15
--- NOTE | 2016-09-28 11:01 | DRSVH ---
PROCEDURE: X-RAY CHEST ONE VIEW, PORTABLE ([id number]) INDICATIONS: cp TECHNIQUE: One view of the chest was acquired. COMPARISON: [facility], CR, XR CHEST 1VW (PORTABLE), 09/15/2016, 17:27. [facility], CR, XR CHEST 1VW (PORTABLE), 09/05/2016, 9:21. [facility], CR, CHEST 1VW (PORTABL E), 05/17/2011, 12:47. FINDINGS: Surgical changes and devices: None. Lungs and pleura: No pleural effusions or pneumothorax. Lungs are clear. Mediastinum: Mediastinal contours appear normal. Heart size is normal. Bones and chest wall: No suspicious bony lesions. Overlying soft tissues appear unremarkable. IMPRESSION: No radiographic evidence of acute cardiopulmonary pathology. Right pleural effusion has resolved. Dictated by: Roderick Stephens M.D. on 09/28/2016 at 10:58 Approved by: Roderick Stephens M.D. on 09/28/2016 at 10:59
[2016-09-28 11:14] LABS: BASOPHILS % (AUTO) 0.4 % (0-3); EOSINOPHILS % (AUTO) 1.7 % (0-5); MONOCYTES % (AUTO) 9.8 % (4-12); Mean Corpuscular Hemoglobin 28.7 pg (27.0-35.0); Mean Corpuscular Volume 84.5 fL (81-100); NEUTROPHILS % (AUTO) 75.5 % (40-74); Platelet Count 493 bil/L (150-400)
[2016-09-28 11:28] VITALS: BP_SYST 110; BP_SYST 96; BP_DIAS 49; BP_DIAS 56; PULSE 63; PULSE 68; RESP 11; RESP 14; O2SAT 95; O2SAT 98
[2016-09-28 11:34] LABS: TROPONIN T 0.01 ug/L (0.0-0.011)
[2016-09-28 11:45] LABS: Magnesium 1.7 mg/dL (1.6-2.6)
[2016-09-28 11:58] VITALS: BP 115/44; PULSE 64; RESP 18; O2SAT 95
[2016-09-28 12:31] LABS: APPEARANCE,URINE CLEAR (CLEAR,HAZY); COLOR,URINE STRAW (YELLOW); OCCULT BLOOD,URINE MODERATE (NEGATIVE); UROBILINOGEN,URINE NORMAL (NORMAL)
[2016-09-28 13:44] VITALS: BP 109/45; PULSE 67; RESP 18; O2SAT 96
== END 2016-09-28 13:30 | disposition home or self-care (01) ==
LOC: SED 10:22
DX: R53.83 Other fatigue (principal); R74.8 Abnormal levels of other serum enzymes; R74.0 Nonspecific elevation of levels of transaminase and lactic acid dehydrogenase [LDH]; D72.828 Other elevated white blood cell count; R06.02 Shortness of breath; K21.9 Gastro-esophageal reflux disease without esophagitis; E78.5 Hyperlipidemia, unspecified; F32.9 Major depressive disorder, single episode, unspecified; F41.9 Anxiety disorder, unspecified; Z88.2 Allergy status to sulfonamides; Z88.5 Allergy status to narcotic agent; Z88.0 Allergy status to penicillin

== ENCOUNTER 2016-10-02 00:59 | Day surgery (SDC) | payer MEDICARE ==
[2016-10-02 12:22] LABS: BASOPHILS % (AUTO) 0.4 % (0-3); EOSINOPHILS % (AUTO) 2.8 % (0-5); MONOCYTES % (AUTO) 9.2 % (4-12); Mean Corpuscular Hemoglobin 28.3 pg (27.0-35.0); Mean Corpuscular Volume 84.7 fL (81-100); NEUTROPHILS % (AUTO) 76.4 % (40-74); Platelet Count 441 bil/L (150-400)
[2016-10-02 12:36] LABS: INR 1.15 ratio
[2016-10-02 13:00] VITALS: BP 107/50; PULSE 65; RESP 18; O2SAT 98
[2016-10-14] MEDS ORDERED: ALBU8.5H2 INHALATION (14:01)
[2016-10-14] MEDS ORDERED: KLO5T PO (14:01)
[2016-10-14] MEDS ORDERED: OMEP20CA11 PO (14:01)
[2016-10-14] MEDS ORDERED: BECL8.7A6 INHALATION (14:01)
[2016-10-14] MEDS ORDERED: CETI10CA PO (14:01)
[2016-10-14] MEDS ORDERED: ALEN40TA2 PO (14:01)
== END 2016-10-02 23:59 | disposition home or self-care (01) ==
LOC: SOUO 00:59
PROVIDERS: ATTEND Internal Medicine Cardiovascular Disease
DX: I49.5 Sick sinus syndrome (principal); Z53.9 Procedure and treatment not carried out, unspecified reason

== ENCOUNTER → 2016-10-15 | Day surgery (SDC) | payer MEDICARE ==
[~2016-10-15] VITALS: Ht 157.5 cm; Wt 54.4 kg
[~2016-10-15] MED LIST changes: +0.9% Sodium Chloride 1,000 ML IV SCH; +ALBU8.5H2 INHALATION; +ALEN40TA2 PO; +BECL8.7A6 INHALATION; +KLO5T PO; +Lactated Ringer's 1,000 ML IV ONE; +Lactated Ringer's 1,000 ML IV SCH; +MetoCLOpramide 5 mg/mL 2 mL Inj IVPUSH PRN; +OMEP20CA11 PO; +Ondansetron 2 mg/mL 2 mL Inj IVPUSH PRN; +Propofol 10 mg/mL 20 mL Inj ONE; +Sodium Chloride LOK Flush 10 mL Syringe IV PRN; +fentaNYL-PF 50 mCg/mL 2 mL Inj IVPUSH PRN
[2016-10-15 10:52] VITALS: BP 115/66; PULSE 81; RESP 16; O2SAT 93
[2016-10-15 12:16] VITALS: BP 86/48; PULSE 75; RESP 12; O2SAT 92
--- NOTE | 2016-10-15 12:22 | PCM.HPANE ---
Patient Data Surgeon Admitting Provider: Attending Provider:Sorin Herrera MD Primary Care Physician:Rudy Quesada MD Other Provider: Reason for Visit Iron Deficiency Anemia Ht/WT & BMI Height (Feet): 5 Height (Inches): 2 Weight (Kilograms): 54.43 Body Mass Index 22.00 Allergies Coded Allergies: Penicillins (Verified Allergy, Severe, itchy rash, 09/28/16) Sulfa (Sulfonamide Antibiotics) (Verified Allergy, Unknown, RASH, 09/28/16) hydrocodone (Verified Adverse Reaction, Severe, N/V, 09/28/16) Cat Dander (Verified Adverse Reaction, Intermediate, nasal plug up, ) oxycodone (Verified Adverse Reaction, Intermediate, n/v, 09/28/16) Past Anesthesia History Anesthesia History: Denies:: Abnormal Airway, Anesthesia Reactions, Difficult Intubation, Fam Anesthesia Reaction, Fam Malignant Hypertherm, Malignant Hyperthermia Diabetes History Hx Diabetes?: No MRSA MRSA: No Medications Blood Thinner: Aspirin Last Dose Blood Thinner: Oct 14, 2016 Home Meds Incl Beta Gen: Yes Date Beta Gen Taken: Oct 14, 2016 Time Beta Gen Taken: 0800 Active Scripts Metoprolol Tartrate 25 Mg Swgusg59 Mg PO BID #60 TABLET Ref 6 Prov:SATINDER CRUZ P DO 09/20/16 Reported Medications Clonazepam 0.5 Mg Tablet0.5 Mg PO BID PRN For Anxiety Ref 0 10/14/16 Atorvastatin (Lipitor)10 Mg Tab10 Mg PO HS 09/13/16 Cetirizine HCl (Zyrtec)10 Mg Yfmhdzu82 Mg PO DAILY #30 CAPSULE Ref 0 11/23/14 Cyanocobalamin/Folic Acid (Vitamin D54-Jbaym Acid Tablet)1 Each Tablet1 Each PO DAILY 11/23/14 Multivitamin (Multi Vitamin Daily)1 Each Tablet1 Each PO DAILY 30 Days Ref 0 11/23/14 Fluticasone Propionate (Fluticasone Propionate Nasal)16 Gm [place].susp1 [place] NS BID #16 GM Ref 0 11/23/14 Fluoxetine 20 Mg Zwvjoog51 Mg PO DAILY Ref 0 11/23/14 Aspirin 81 Mg Rskaaq11 Mg PO DAILY Ref 0 11/23/14 Discontinued Reported Medications Cetirizine HCl (Zyrtec)10 Mg Dnkceai45 Mg PO HS #30 CAPSULE Ref 0 10/14/16 Beclomethasone Dipropionate (Qvar)8.7 Gm Aer.w.adap1 Puff INHALATION BID #8.7 GM 10/14/16 Omeprazole 20 Mg Capsule.dr20 Mg PO DAILY Ref 0 10/14/16 Alendronate 40 Mg Addwyl26 Mg PO WEEKLY Ref 0 10/14/16 Albuterol HFA (Proair HFA)8.5 Gm Hfa.aer.ad2 Puffs INHALATION Q4H #1 INHALER 10/14/16 Ranitidine 150 Mg Nqjfykp355 Mg PO BID 09/13/16 Calcium Citrate/Vitamin D3 (Calcium Citrate-Vit D3 Tablet)1 Each Tablet1 Each PO DAILY 11/23/14 History History of ENT Problems?: Yes HEENT History: Positive for:: Sinus Problem (allergy to cat dander) Denies:: Abnormal Airway Cataracts Difficult Intubation Dysphagia Hearing Problem Denture Type: None Teeth Condition: Within Normal Limits Hx of Heart Problems?: Yes Cardiovascular History: Positive for:: Atrial Fibrillation Hypertension Denies:: AICD Chest Pain Congestive Heart Failure Pacemaker Valvular Heart Disease Other Cardiac History: PT LAST WEEK WAS SCHEDULED FOR A PACEMAKER PLACEMENT WHICH WAS CANCELLED BECAUSE OF INFECTION ELSEWHERE IN THE BODY. PT IS NOT SURE IF SHE STILL NEEDS THE PACEMAKER PLACED?! Hx of Respiratory Problem?: No Respiratory History: Denies:: Asthma COPD Cough Hemoptysis Pneumonia Tuberculosis Hx Neurologic Problems?: Yes Neurological History: Positive for:: Headaches Denies:: CVA Dementia Hx of GI Problems?: Yes Other GI Pertinent History: PT BORN WITH ONLY 1 KIDNEY Hx of Problems?: Yes Genitourinary History: Positive for:: Urinary Tract Infection HX of Peritoneal Dialysis: No Female Hx: Denies:: Currently Endometriosis Pelvic Inflammatory Problems with Breasts? Skin History: Denies:: History Skin Disorders? Pressure Ulcers Hx Musculoskeletal Problems?: Yes Musculoskeletal History: Positive for:: Back Injury (lower) Denies:: Fibromyalgia Joint Replacement Musculoskeletal Trauma Hx of Psycho/Social Problems?: Yes Psycho Social History: Positive for:: Hx Depression Denies:: Anxiety Hx Surgeries?: Yes (BOWEL RESECTION, OVARY REMOVED) Hx Any Other Health Problems?: Yes Other History: Positive for:: Hospitalization (DIVERTICULITIS) Denies:: Cancer Endocrine Disease Thyroid Disease History Blood Transfusions: Positive for:: Blood Transfusions Denies:: Blood Transfuse Reaction Hx Diabetes: No Hx Alcohol Use: NoHx Substance Use: No Smoking Status: Never Smoker Have You Smoked inLast 12 mo: No Stop/Bang Treated for Sleep Apnea?: No Do You Have a CPAP Machine?: No S-Snoring: Do You Snore Loudly: No T-Tired: feel tired, fatigued: No O-Obsered: Observed not breath: No P-Blood Pressure: treated: Yes B- Body Mass Index > 35 kg/m2: No A- Age over 50: Yes N- Neck Large Circumference: No G- Gender Male: No JAMIL Total Score: 2 Risk Assessment Category Category 1A: Patient has history of documented sleep apnea, and HAS NOT received any narcotic, sedative or anesthesia administration during this stay. Category 1B: Patient has history of documented sleep apnea, and HAS received any narcotic , sedative or anesthesia administration during this stay Category 2: Patient has SUSPECTED Obstructive Sleep Apnea, and HAS received any narcotic , sedative or anesthesia administration during this stay. Category 3: Patient has SUSPECTED Obstructive Sleep Apnea and HAS NOT received narcotic, sedative or anesthesia administration during this stay. Category 4: Outpatient in Procedural Areas with known sleep apnea or who screen positive for High Risk via the STOP/BANG questionnaire. Exam Exam Vital Signs Vital Signs Date Time Temp Pulse Resp B/P Pulse Ox O2 Delivery O2 Flow Rate FiO2 10/15/16 10:52 81 16 115/66 93 Room Air General Appearance: Alert, Oriented X3, Cooperative, No Acute Distress HEENT/AIRWAY: MP 2 Lungs: Clear to Auscultation, Normal Air Movement Heart: Other (IRREG IRREG) Plan Impression Patient chart reviewed, patient interviewed and anesthestic plan with risks, benefits, and alternatives discussed, and informed consent obtained. NPO per Anesth. Guidelines: Yes ASA Physical Status: ASA3 Severe Disease (sss, A FIB) Anesthetic Plan: GA, MAC Bene/Risks/Altern/Consents: Yes HP Complete Prior to Induction: Yes Lester Miles MD Oct 15, 2016 11:29
--- NOTE | 2016-10-15 12:23 | PCM.ANEP1 ---
Post Anesthesia PACU Phase 1 Assessment Vital Signs Vital Signs Date Time Temp Pulse Resp B/P Pulse Ox O2 Delivery O2 Flow Rate FiO2 10/15/16 12:16 75 12 86/48 92 Room Air 10/15/16 10:52 81 16 115/66 93 Room Air Anesthetic Administered: GA, MAC Level of Alertness: Awake, talking AMANDA's with Equal Strength: Yes Pain: No Nausea or Vomiting: No CV Function & Hydration Stable: Yes Airway Device: N/A Oxygen Delivery: Room Air Lungs: Clear to Auscultation, Normal Air Movement Dermatome Level: Full Sensation PACU Phase 2 Assessment Complications: No Follow up Care: N/A Patient Instructions Provided: N/A Lester Miles MD Oct 15, 2016 12:23
[2016-10-15 12:24] VITALS: BP 104/59; PULSE 70; RESP 16; O2SAT 93
[2016-10-15 12:29] VITALS: BP 96/51; PULSE 82; RESP 16; O2SAT 96
--- NOTE | 2016-10-15 13:07 | ENDO ---
[address] [address] ENDOSCOPY PROCEDURE PATIENT: DAVID MIXON : 1940 MR#: [id number] ADMIT: 10/15/2016 JOB ID: [id number] DATE OF SERVICE: 10/15/2016 TYPE OF OPERATION: Esophagogastroduodenoscopy, biopsy, colonoscopy. PREOPERATIVE DIAGNOSIS(ES): Iron deficiency anemia. POSTOPERATIVE DIAGNOSIS(ES): 1. Medium-sized hiatal hernia. 2. Widely open, patent Schatzki ring, status post biopsy. 3. Status post history of colon resection and sigmoid resection in the past for diverticulitis. 4. Small internal hemorrhoids. ANESTHESIA: Monitored anesthesia care. COMPLICATION: None. BLOOD LOSS: Minimal. DESCRIPTION OF PROCEDURE: After risks and benefits explained to the patient, informed consent was obtained. After anesthesia administered, upper endoscope was then inserted into the mouth, intubated in the esophagus, stomach, second portion of duodenum. Mucosa carefully examined. After procedure was done, the scope withdrawn, procedure terminated. Colonoscope was inserted from the rectum to terminal ileum and mucosa carefully examined. Prep of the patient was excellent. After the procedure was done, the scope withdrawn, procedure terminated. FINDINGS: Upon inspection of the esophagus, esophagus was normal without masses, ulcers, or lesions. Z-line located at 38 cm from incisors. Upon entering the stomach, the stomach was also normal without masses, ulcers, or lesions. Retroflexion showed medium-size hiatal hernia. Duodenal bulb, first and second portion normal. The distal esophagus showed widely open, patent Schatzki ring. Biopsies taken in duodenum and distal esophagus. Upon inspection of the anus, no masses, hemorrhoids, ulcers, or fissures that were seen throughout the entire examination. There was a prior sigmoid resection due to diverticulitis seen at sigmoid colon. No polyps or masses were seen. Terminal ileum was normal. Retroflexion showed small internal hemorrhoids. IMPRESSION: 1. Small internal hemorrhoids. 2. Status post history of sigmoid resection for diverticulosis in the past. 3. Medium-size hiatal hernia. 4. Widely open, patent Schatzki's ring. RECOMMENDATIONS: Await pathology results. Nexium 40 mg by mouth once a day. Follow up in GI clinic as needed.
--- NOTE | 2016-10-18 12:50 | PATH ---
SURGICAL PATHOLOGY Attending Physician:Sorin Herrera MD CASE STATUS: Signed Out PATIENT NAME: DAVID MIXON PID: [id number] : 1940 DATE COLLECTED:10/15/2016 19:42 SPECIMEN: 1: Duodenum, Biopsy 2: Esophagus, Biopsy CLINICAL HISTORY: 1). DUODENUM BIOPSY 2). DISTAL ESOPHAGUS BIOPSY FINAL DIAGNOSIS: 1. Duodenum, Biopsy: Normal small bowel mucosa. Negative for inflammation, histologic evidence of celiac disease, granulomas, dysplasia and malignancy. 2. Distal Esophagus, Biopsy: Squamocolumnar junctional mucosa with mild chronic esophagitis. Negative for Reyes's esophagus, dysplasia and malignancy. Negative for eosinophilic esophagitis. ICD10: K20.9 GROSS DESCRIPTION: The specimen is received in two formalin filled containers labeled with the patient's name. 1). The specimen is labeled "duodenum" and consists of 2 portions of tissue which aggregate to 0.3 x 0.3 x 0.2 CM. The specimen is entirely submitted in cassette 1A. 2). The specimen is labeled "distal esophagus" and consists of 2 portions of tissue which aggregate to zero 3 x 0.3 x 0.3 CM. The specimen is entirely submitted in cassette 2A. 10/15/2016DC ICD-9 CODES: CPT CODES: 1: 18396 2: 40795 Electronically Signed Out Marko Venegas MD, PhD [facility], [place] [address] Technical component performed at [facility], [facility] [address], [place], [address]
== END | disposition home or self-care (01) ==
LOC: END 01:44
PROVIDERS: ATTEND Internal Medicine Gastroenterology
DX: D50.9 Iron deficiency anemia, unspecified (principal); K64.8 Other hemorrhoids; K57.30 Diverticulosis of large intestine without perforation or abscess without bleeding; K20.9 Esophagitis, unspecified; K44.9 Diaphragmatic hernia without obstruction or gangrene; K22.2 Esophageal obstruction; I10 Essential (primary) hypertension; F32.9 Major depressive disorder, single episode, unspecified; K21.9 Gastro-esophageal reflux disease without esophagitis; E78.5 Hyperlipidemia, unspecified

== ENCOUNTER → 2016-11-14 | Day surgery (SDC) | payer MEDICARE ==
[~2016-11-14] VITALS: Ht 157.5 cm; Wt 55.3 kg
[~2016-11-14] MED LIST changes: -0.9% Sodium Chloride 1,000 ML IV SCH; +ALBU6.7H INH; -ALBU8.5H2 INHALATION; -ALEN40TA2 PO; +ALEN70TA2 PO; +BECL8.7A5 INHALATION; -BECL8.7A6 INHALATION; +CA C1TAB83 PO; -CALC-953 PO; -Lactated Ringer's 1,000 ML IV SCH; -MetoCLOpramide 5 mg/mL 2 mL Inj IVPUSH PRN; -OMEP20CA11 PO; +OMEP20TA86 PO; -Ondansetron 2 mg/mL 2 mL Inj IVPUSH PRN; -Propofol 10 mg/mL 20 mL Inj ONE; +Propofol 10,000 mCg/mL 20 mL Inj ONE; -RANI150C4 PO; -Sodium Chloride LOK Flush 10 mL Syringe IV PRN; -fentaNYL-PF 50 mCg/mL 2 mL Inj IVPUSH PRN
[2016-11-14 11:16] VITALS: BP 119/70; PULSE 67; RESP 16; O2SAT 96
[2016-11-14 13:17] VITALS: BP 127/58; PULSE 72; RESP 14; O2SAT 95
[2016-11-14 13:25] VITALS: BP 116/67; PULSE 69; RESP 18; O2SAT 93
[2016-11-14 13:44] VITALS: BP 97/56; PULSE 72; RESP 16; O2SAT 94
--- NOTE | 2016-11-14 16:27 | PCM.HPANE ---
Patient Data Date of Service: Nov 14, 2016 Surgeon Admitting Provider: Attending Provider:Gris Shea MD Primary Care Physician:Rudy Quesada MD Other Provider:Vance Saunders Anesthesia Reason for Visit Acute Pancreatitis Ht/WT & BMI Height (Feet): 5 Height (Inches): 2 Weight (Kilograms): 55.34 Body Mass Index 22.00 Allergies Coded Allergies: Penicillins (Verified Allergy, Severe, itchy rash, 11/14/16) Sulfa (Sulfonamide Antibiotics) (Verified Allergy, Unknown, RASH, 11/14/16) hydrocodone (Verified Adverse Reaction, Severe, N/V, 11/14/16) Cat Dander (Verified Adverse Reaction, Intermediate, nasal plug up, ) oxycodone (Verified Adverse Reaction, Intermediate, n/v, 09/28/16) Past Anesthesia History Anesthesia History: Denies:: Abnormal Airway, Anesthesia Reactions, Difficult Intubation, Fam Anesthesia Reaction, Fam Malignant Hypertherm, Malignant Hyperthermia Diabetes History Hx Diabetes?: No MRSA MRSA: No Medications Blood Thinner: Aspirin Last Dose Blood Thinner: Nov 13, 2016 Hypertension Medication: Yes Home Meds Incl Beta Gen: Yes Date Beta Gen Taken: Nov 13, 2016 Time Beta Gen Taken: 1900 Active Scripts Metoprolol Tartrate 25 Mg Bfrign03 Mg PO BID #60 TABLET Ref 6 Prov:SATINDER CRUZ DO 09/20/16 Reported Medications Omeprazole 20 Mg Tablet.dr20 Mg PO DAILY 11/14/16 Ca Carbonate/Vitamin D3/Vit K (Calcium + D Soft Chewable Tab)1 Each Tab.chew1 Each PO 11/14/16 Alendronate Sodium (Fosamax)70 Mg Yaiuxx97 Mg PO W 30 Days Ref 0 11/14/16 Clonazepam 0.5 Mg Tablet0.5 Mg PO BID PRN For Anxiety Ref 0 10/14/16 Atorvastatin (Lipitor)10 Mg Tab10 Mg PO HS 09/13/16 Cetirizine HCl (Zyrtec)10 Mg Waeaitm84 Mg PO DAILY #30 CAPSULE Ref 0 11/23/14 Cyanocobalamin/Folic Acid (Vitamin P74-Aqrss Acid Tablet)1 Each Tablet1 Each PO DAILY 11/23/14 Multivitamin (Multi Vitamin Daily)1 Each Tablet1 Each PO DAILY 30 Days Ref 0 11/23/14 Fluticasone Propionate (Fluticasone Propionate Nasal)16 Gm [place].susp1 [place] NS BID #16 GM Ref 0 11/23/14 Fluoxetine 20 Mg Wdzgpzr67 Mg PO DAILY Ref 0 11/23/14 Aspirin 81 Mg Mjhhqa96 Mg PO DAILY Ref 0 11/23/14 Discontinued Reported Medications Cetirizine HCl (Zyrtec)10 Mg Briyvjs03 Mg PO HS #30 CAPSULE Ref 0 11/14/16 Beclomethasone Dipropionate (Qvar)8.7 Gm Aer.w.adap1 Puff INHALATION BID #8.7 GM 11/14/16 Albuterol Sulfate (Proventil HFA Inhaler)6.7 Gm Hfa.aer.ad1 Puff INH Q4 PRN For Shortness of Breath #1 INHALER Ref 0 11/14/16 History History of ENT Problems?: Yes HEENT History: Positive for:: Sinus Problem (allergy to cat dander) Denies:: Abnormal Airway Cataracts Difficult Intubation Dysphagia Hearing Problem Denture Type: Full- Upper Partial- Lower Teeth Condition: Within Normal Limits Hx of Heart Problems?: Yes Cardiovascular History: Positive for:: Atrial Fibrillation Hypertension Denies:: AICD Chest Pain Congestive Heart Failure Pacemaker Valvular Heart Disease Hx of Respiratory Problem?: Yes Respiratory History: Positive for:: Pneumonia Denies:: Asthma COPD Cough Hemoptysis Tuberculosis Other Resp Pertinent History: recent inhaler use for chronic cough. Hx Neurologic Problems?: Yes Neurological History: Positive for:: Headaches Denies:: CVA Dementia Hx of GI Problems?: Yes Hx of Problems?: Yes Genitourinary History: Positive for:: Urinary Tract Infection HX of Peritoneal Dialysis: No Female Hx: Denies:: Currently Endometriosis Pelvic Inflammatory Problems with Breasts? Skin History: Denies:: History Skin Disorders? Pressure Ulcers Hx Musculoskeletal Problems?: Yes Musculoskeletal History: Positive for:: Back Injury (lower) Denies:: Fibromyalgia Joint Replacement Musculoskeletal Trauma Hx of Psycho/Social Problems?: Yes Psycho Social History: Positive for:: Anxiety Hx Depression Hx Surgeries?: Yes (hemmerhoids, bowel resection) Hx Any Other Health Problems?: Yes Other History: Positive for:: Hospitalization (DIVERTICULITIS) Denies:: Cancer Endocrine Disease Thyroid Disease History Blood Transfusions: Positive for:: Blood Transfusions Denies:: Blood Transfuse Reaction Hx Diabetes: No Hx Alcohol Use: NoHx Substance Use: No Smoking Status: Never Smoker Have You Smoked inLast 12 mo: No Stop/Bang Treated for Sleep Apnea?: No Do You Have a CPAP Machine?: No S-Snoring: Do You Snore Loudly: No T-Tired: feel tired, fatigued: Yes O-Obsered: Observed not breath: No P-Blood Pressure: treated: No B- Body Mass Index > 35 kg/m2: No N- Neck Large Circumference: No G- Gender Male: No JAMIL Risk Assessment: Low Risk, <3 Yes Risk Assessment Category Category 1A: Patient has history of documented sleep apnea, and HAS NOT received any narcotic, sedative or anesthesia administration during this stay. Category 1B: Patient has history of documented sleep apnea, and HAS received any narcotic , sedative or anesthesia administration during this stay Category 2: Patient has SUSPECTED Obstructive Sleep Apnea, and HAS received any narcotic , sedative or anesthesia administration during this stay. Category 3: Patient has SUSPECTED Obstructive Sleep Apnea and HAS NOT received narcotic, sedative or anesthesia administration during this stay. Category 4: Outpatient in Procedural Areas with known sleep apnea or who screen positive for High Risk via the STOP/BANG questionnaire. Exam Exam Vital Signs Vital Signs Date Time Temp Pulse Resp B/P Pulse Ox O2 Delivery O2 Flow Rate FiO2 11/14/16 13:44 72 16 97/56 94 Room Air 11/14/16 13:25 69 18 116/67 93 Room Air 11/14/16 13:17 72 14 127/58 95 Nasal Cannula 3 11/14/16 11:16 67 16 119/70 96 Room Air General Appearance: Oriented X3, Cooperative HEENT/AIRWAY: MP 2 Lungs: Clear to Auscultation Heart: Exam Unremarkable Meds/Labs/Diagnostics Admission Meds Current Medications Lactated Ringer's (Lr) 1,000 ml @ 10 mls/hr Q24H ONCE IV Last administered on 11/14/16t 12:57; Start 11/14/16 at 07:54; Stop 11/15/16 at 07:53 Plan Impression Patient chart reviewed, patient interviewed and anesthestic plan with risks, benefits, and alternatives discussed, and informed consent obtained. NPO per Anesth. Guidelines: Yes ASA Physical Status: ASA3 Severe Disease Anesthetic Plan: MAC Bene/Risks/Altern/Consents: Yes HP Complete Prior to Induction: Yes Sorin Brown MD Nov 14, 2016 16:27
--- NOTE | 2016-11-14 16:28 | PCM.ANEP1 ---
Post Anesthesia PACU Phase 1 Assessment Vital Signs Vital Signs Date Time Temp Pulse Resp B/P Pulse Ox O2 Delivery O2 Flow Rate FiO2 11/14/16 13:44 72 16 97/56 94 Room Air 11/14/16 13:25 69 18 116/67 93 Room Air 11/14/16 13:17 72 14 127/58 95 Nasal Cannula 3 11/14/16 11:16 67 16 119/70 96 Room Air Anesthetic Administered: MAC Level of Alertness: Awake, talking Pain: No Nausea or Vomiting: No CV Function & Hydration Stable: Yes Airway Device: Oxygen Delivery: Room Air Lungs: Clear to Auscultation PACU Phase 2 Assessment Complications: No Follow up Care: N/A Patient Instructions Provided: N/A Sorin Brown MD Nov 14, 2016 16:28
--- NOTE | 2016-11-16 05:32 | ENDO ---
[address] [address] ENDOSCOPY PROCEDURE PATIENT: DAVID MIXON : 1940 MR#: [id number] ADMIT: 11/14/2016 JOB ID: [id number] PROCEDURE: Endoscopic ultrasound examination. INDICATION: History of acute pancreatitis. Please see anesthesia note for details regarding ASA classification, Mallampati score and medications. INSTRUMENT USED: [employer]ia[employer] ECT 180 linear echo endoscope. PROCEDURE DETAILS: After informed consent was obtained, the patient was brought to the GI suite, where she was placed on oxygen via nasal cannula and monitored with continuous pulse oximeter, telemetry and blood pressure monitoring. A time-out was performed. Then, she was placed in a left lateral decubitus position and medications were administered for sedation. The linear echo endoscope was then introduced with a bite block and advanced without difficulty to the second portion of the duodenum. Linear echo endoscopic imaging demonstrated the followin. The pancreas appeared to be slightly hyperechoic suggestive of fatty pancreas. No mass lesions were appreciated. 2. The pancreatic duct was identified and the body measured approximately 2 mm. 3. The common bile duct was identified and no filling defects were noted. The common bile duct measured approximately 2 mm in the distal portion. The ampulla was identified and appeared unremarkable. 4. Visualized portions of the gallbladder did not reveal any evidence of cholelithiasis. 5. Examined portions of the left lobe of the liver were unremarkable. 6. The left adrenal gland was identified and appeared unremarkable. 7. The portal vein, superior mesenteric vein and splenic vein had normal flow. 8. Splenic artery and splenic vein flow was noted. 9. The celiac axis was identified and appeared unremarkable. 10. The superior mesenteric artery was identified and had flow. IMPRESSIONS: Fatty appearing pancreas, but otherwise normal endoscopic ultrasound exam. No findings to explain patient's history of acute pancreatitis. RECOMMENDATIONS: Follow up in GI clinic. COMPLICATIONS: None. ESTIMATED BLOOD LOSS: Zero.
== END | disposition home or self-care (01) ==
LOC: END 00:33
PROVIDERS: ATTEND Internal Medicine Gastroenterology
DX: R10.13 Epigastric pain (principal); D50.9 Iron deficiency anemia, unspecified; K57.30 Diverticulosis of large intestine without perforation or abscess without bleeding; I10 Essential (primary) hypertension; I49.5 Sick sinus syndrome; I48.91 Unspecified atrial fibrillation; E78.5 Hyperlipidemia, unspecified; K21.9 Gastro-esophageal reflux disease without esophagitis; F41.8 Other specified anxiety disorders; K44.9 Diaphragmatic hernia without obstruction or gangrene; M85.80 Other specified disorders of bone density and structure, unspecified site; R63.4 Abnormal weight loss; Z68.23 Body mass index [BMI] 23.0-23.9, adult; Z79.82 Long term (current) use of aspirin
CPT/HCPCS: 43237; J2704; J7120